=== PATIENT | female | born 1950 | race Caucasian/White ===

== ENCOUNTER 2018-05-20 15:52 | Emergency (ER) | payer MEDICARE ==
[2018-05-20 16:11] VITALS: BP 122/85
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
== END 2018-05-20 17:45 | disposition short-term general hospital (02) ==
LOC: UCEAST 15:52
DX: R55 Syncope and collapse (principal); S06.9X9A Unspecified intracranial injury with loss of consciousness of unspecified duration, initial encounter; W18.30XA Fall on same level, unspecified, initial encounter; Y93.89 Activity, other specified; Y92.512 Supermarket, store or market as the place of occurrence of the external cause; R42 Dizziness and giddiness; R51 Headache; H53.8 Other visual disturbances; R20.2 Paresthesia of skin; T76.31XA Adult psychological abuse, suspected, initial encounter; Y07.01 Husband, perpetrator of maltreatment and neglect; Z87.891 Personal history of nicotine dependence
CPT/HCPCS: 93005; 99213; G0463

== ENCOUNTER 2018-05-20 18:06 | Inpatient (IN) | payer MEDICARE ==
[2018-05-20 20:46] LABS: Hematocrit 31 % (35-47); Mean Corpuscular HGB Conc 33 g/dl (31-36); Mean Corpuscular Hemoglobin 27 pg (27-31); Mean Corpuscular Volume 81 fL (80-97); Red Blood Count 3.77 10^6/ul (4.00-5.40); Red Cell Distribution Width 19 % (10.5-15)
[2018-05-20 21:09] LABS: EGFR Non-African American 75.9 (>60)
[2018-05-20 21:27] LABS: Urine Appearance Cloudy; Urine Blood Negative (Negative); Urine Color Amber; Urine Ketones Negative (Negative); Urine Protein Negative (Negative); Urine Red Blood Cell Trace(0-2/hpf) (Absent); Urine Specific Gravity 1.019 (1.010-1.030); Urine Urobilinogen Positive (Negative); Urine White Blood Cell 1+(6-10/hpf) (Absent)
--- NOTE | 2018-05-20 21:27 | RAD ---
EXAM: CT Head Without Intravenous Contrast EXAM DATE/TIME: 05/20/2018 9:10 PM CLINICAL HISTORY: 68 years old, female; Injury or trauma; Fall; Additional info: MOORE, head injury TECHNIQUE: Axial computed tomography images of the head/brain without intravenous contrast. All CT scans at this facility use at least one of these dose optimization techniques: automated exposure control; mA and/or kV adjustment per patient size (includes targeted exams where dose is matched to clinical indication); or iterative reconstruction. COMPARISON: No relevant prior studies available. FINDINGS: Brain: Decreased attenuation of the supratentorial white matter is likely secondary to chronic microvascular ischemia. Ventricles: Ventricular and subarachnoid spaces are age appropriate. Bones/joints: Normal. No acute fracture. Sinuses: Normal as visualized. No acute sinusitis. Mastoid air cells: Normal as visualized. No mastoid effusion. Soft tissues: Normal. Vasculature: Intracranial vascular calcification. IMPRESSION: No acute intracranial abnormality. To contact [facility] with a general question: [facility] - [phone] For direct physician to physician contact: Physician Hotline - [phone] [facility] ([facility] Facility ID #[id number])
[2018-05-20 21:30] LABS: ABS Basophils 0 10^3/ul (0-0.2); ABS Eosinophils 0 10^3/ul (0-0.6); ABS Lymphocytes 0.6 10^3/ul (1.0-4.8); ABS Monocytes 0.2 10^3/ul (0-0.8); ABS Neutrophils 2.2 10^3/ul (1.5-7.7); ABS Nucleated RBC 0 10^3/ul; Eosinophil % 0.8 % (0-6); Lymphocyte % 19.5 % (25-47); Mean Platelet Volume 7.3 um3 (7.4-10.4); Nucleated Red Blood Cells % 0.1; Platelet Count 85 10^3/ul (150-450)
[2018-05-20] MEDS ORDERED: Sulfamethox/Trimethoprim DS 800/160* TAB PO ONE (22:00)
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
[2018-05-20] MEDS ORDERED: Ibuprofen TAB* 400 MG PO ONE (22:11)
[2018-05-21 00:35] LABS: INR 1.09 (0.77-1.02)
[2018-05-21] MEDS ORDERED: Ondansetron INJ* 2 MG/ML VIAL IV PRN (03:02)
[2018-05-21] MEDS ORDERED: Docusate CAP* 100 MG PO PRN (03:02)
[2018-05-21] MEDS ORDERED: Al Hydrox/Mg Hydrox/Simet LIQ* 30 ML UDC PO PRN (03:02)
[2018-05-21] MEDS ORDERED: Senna TAB PO PRN (03:02)
[2018-05-21] MEDS ORDERED: Magnesium Sulfate 1 GM IV* 1 GM/100 ML BAG IV ONE (03:04)
[2018-05-21] MEDS ORDERED: Potassium Chlor TAB* 20 MEQ TAB.ER PO ONE (03:04)
[2018-05-21] MEDS ORDERED: ALPRAZolam TAB* 0.5 MG PO PRN (03:05)
[2018-05-21] MEDS ORDERED: Polyethylene Glycol 3350* 17 GM PACKET PO PRN (03:09)
[2018-05-21] MEDS ORDERED: traMADol TAB* 50 MG PO PRN (03:10)
[2018-05-21] MEDS ORDERED: traZODone TAB* 100 MG PO PRN (03:10)
--- NOTE | 2018-05-21 08:11 | RAD ---
INDICATION: Syncope COMPARISON: None. TECHNIQUE: Single AP portable view of the chest was obtained. FINDINGS: Image quality is compromised due to the relative inferiority of a portable chest x-ray. There is a mild degree of cardiomegaly. There is coarse atherosclerotic calcification overlying the aortic arch. The lungs are grossly clear. There is no evidence of a large pleural effusion. Visualized bones are normal for the patient's age. IMPRESSION: No radiographic evidence for acute cardiopulmonary abnormality on this portable chest x-ray. R0
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
[2018-05-21] MEDS: BuPROPion XL* 300 MG TAB.XL PO SCH (09:58)
[2018-05-21] MEDS: FLUoxetine CAP* 20 MG PO SCH (09:58)
[2018-05-21] MEDS: Gabapentin CAP(*) 100 MG PO SCH ×3 (09:59→20:20)
[2018-05-21] MEDS: Spironolactone TAB* 25 MG PO SCH (10:00)
[2018-05-21] MEDS: Omeprazole CAP* 20 MG PO SCH ×2 (10:00→20:19)
[2018-05-21] MEDS: Oxybutynin TAB* 5 MG PO SCH (10:00)
[2018-05-21] MEDS: Sucralfate TAB* 1 GM PO SCH ×4 (10:00→20:20)
[2018-05-21] MEDS: Magnesium Oxide TAB* 400 MG PO SCH (10:00)
[2018-05-21] MEDS: Ferrous Sulfate TAB* 325 MG PO SCH (10:00)
[2018-05-21] MEDS ORDERED: Regadenoson* 0.4 MG/5 ML SYRINGE ONE (10:55)
[2018-05-21] MEDS: Acetaminophen TAB* 325 MG PO PRN (13:32)
--- NOTE | 2018-05-21 13:47 | RAD ---
HISTORY: CP COMPARISONS: None TECHNIQUE: A 1 day stress/rest myocardial perfusion study was performed, with pharmacologic stress. The stress portion was monitored by Dr. Delgado. Gated SPECT imaging was performed, without CT-based attenuation correction secondary to patient rotation DOSE: Stress: Technetium 99m tetrofosmin, 25.7 millicuries, injected at 12:01 PM on May 21, 2018 Rest: Technetium 99m tetrofosmin, 10.3 millicuries, injected at 8:09 AM on May 21, 2018 Pharmacologic agent: Lexiscan FINDINGS: CARDIAC MONITORING: No EKG changes of ischemia with stress. EF: 87 % TID: 1.02 MOTION: Normal motion, with normal wall thickening. PERFUSION: There is a small defect of the lateral wall towards the base of the polar maps which is not reflected in the planar images in the sulci artifactual. There are no definite fixed or reversible perfusion defects. OTHER: None IMPRESSION: NO DEFINITE FIXED OR REVERSIBLE PERFUSION DEFECTS ASSESSMENT: LOW RISK. Based on imaging criteria from ACC/AHA 2002. Guideline Update for the Management of Patient's with Chronic Stable Angina, table 23. Noninvasive Risk Stratification.
--- NOTE | 2018-05-21 14:10 | PN ---
Subjective Date of Service: 05/21/18 Interval History: pt c/o dizziness when walking, but able to walk with walker and one person assistance. Denies CP, but has h/o recent CP episodes, denies SOB Objective Active Medications: Acetaminophen (Tylenol Tab*) 650 mg PO Q4H PRN PRN Reason: FEVER/PAIN Last Admin: 05/21/18 13:32 Dose: 650 mg Al Hydrox/Mg Hydrox/Simethicone (Maalox Plus*) 30 ml PO Q6H PRN PRN Reason: INDIGESTION Alprazolam (Xanax Tab*) 0.5 mg PO BID PRN PRN Reason: ANXIETY Bupropion HCl (Bupropion Xl*) 300 mg PO DAILY [facility]; Protocol Last Admin: 05/21/18 09:58 Dose: 300 mg Docusate Sodium (Colace Cap*) 100 mg PO BID PRN PRN Reason: CONSTIPATION Ferrous Sulfate (Ferrous Sulfate Tab*) 325 mg PO DAILY [facility] Last Admin: 05/21/18 10:00 Dose: 325 mg Fluoxetine HCl (Prozac Cap*) 60 mg PO DAILY [facility] Last Admin: 05/21/18 09:58 Dose: 60 mg Gabapentin (Neurontin Cap(*)) 100 mg PO TID [facility] Last Admin: 05/21/18 13:32 Dose: 100 mg Magnesium Oxide (Magox 400 Tab*) 400 mg PO DAILY [facility] Last Admin: 05/21/18 10:00 Dose: 400 mg Omeprazole (Prilosec Cap*) 20 mg PO BID [facility] Last Admin: 05/21/18 10:00 Dose: 20 mg Ondansetron HCl (Zofran Inj*) 4 mg IV Q4H PRN PRN Reason: NAUSEA/VOMITING Oxybutynin Chloride (Ditropan Tab*) 5 mg PO DAILY [facility] Last Admin: 05/21/18 10:00 Dose: 5 mg Polyethylene Glycol/Electrolytes (Miralax*) 17 gm PO DAILY PRN PRN Reason: CONSTIPATION Senna (Senokot Tab*) 1 tab PO BID PRN PRN Reason: CONSTIPATION Spironolactone (Aldactone Tab*) 25 mg PO DAILY [facility] Last Admin: 05/21/18 10:00 Dose: 25 mg Sucralfate (Carafate*) 1 gm PO QID [facility] Last Admin: 10/17/18 13:32 Dose: 1 gm Tramadol HCl (Ultram*) 50 mg PO Q6H PRN PRN Reason: PAIN Trazodone HCl (Desyrel Tab*) 100 mg PO BEDTIME PRN PRN Reason: SLEEP Vital Signs - 8 hr 05/21/18 05/21/18 05/21/18 07:26 08:08 08:10 Temperature 98.0 F Pulse Rate 63 60 63 Respiratory 16 16 16 Rate Blood Pressure 94/41 101/49 118/63 (mmHg) O2 Sat by Pulse 100 100 100 Oximetry 05/21/18 05/21/18 05/21/18 08:15 09:59 10:50 Temperature 98.2 F Pulse Rate 62 65 Respiratory 18 20 Rate Blood Pressure 121/60 117/54 (mmHg) O2 Sat by Pulse 100 Oximetry 05/21/18 05/21/18 12:08 13:32 Temperature Pulse Rate Respiratory 16 18 Rate Blood Pressure (mmHg) O2 Sat by Pulse Oximetry Oxygen Devices in Use Now: None Appearance: 68 yo F in nAD, AAOx3, appears older that age Eyes: No Scleral Icterus, PERRLA Ears/Nose/Mouth/Throat: NL Teeth, Lips, Gums, Clear Oropharnyx, Mucous Membranes Moist Neck: NL Appearance and Movements; NL JVP Respiratory: Symmetrical Chest Expansion and Respiratory Effort, Clear to Auscultation Cardiovascular: NL Sounds; No Murmurs; No JVD, RRR Abdominal: NL Sounds; No Tenderness; No Distention, No Hepatosplenomegaly Lymphatic: No Cervical Adenopathy Extremities: No Edema, No Clubbing, Cyanosis Skin: - - left occipital laceration and abrasion-smal, wound covered with eschar Neurological: Alert and Oriented x 3, NL Muscle Strength and Tone Result Diagrams: 05/20/18 20:28 05/20/18 20:28 Additional Lab and Data: Lab Results 05/20/18 05/20/18 05/20/18 Range/Units 20:28 20:28 21:00 WBC 3.0 L (3.5-10.8) 10^3/ul RBC 3.77 L (4.00-5.40) 10^6/ul Hgb 10.0 L (12.0-16.0) g/dl Hct 31 L (35-47) % MCV 81 (80-97) fL MCH 27 (27-31) pg MCHC 33 (31-36) g/dl RDW 19 H (10.5-15) % Plt Count 85 L (150-450) 10^3/ul MPV 7.3 L (7.4-10.4) um3 Neut % (Auto) 73.5 (38-83) % Lymph % (Auto) 19.5 L (25-47) % [place] % (Auto) 5.4 (0-7) % Eos % (Auto) 0.8 (0-6) % Baso % (Auto) 0.8 (0-2) % Absolute Neuts (auto) 2.2 (1.5-7.7) 10^3/ul Absolute Lymphs (auto) 0.6 L (1.0-4.8) 10^3/ul Absolute Monos (auto) 0.2 (0-0.8) 10^3/ul Absolute Eos (auto) 0 (0-0.6) 10^3/ul Absolute Basos (auto) 0 (0-0.2) 10^3/ul Absolute Nucleated RBC 0 10^3/ul Nucleated RBC % 0.1 Sodium 139 (135-145) mmol/L Potassium 3.3 L (3.5-5.0) mmol/L Chloride 108 (101-111) mmol/L Carbon Dioxide 25 (22-32) mmol/L Anion Gap 6 (2-11) mmol/L BUN 17 (6-24) mg/dL Creatinine 0.76 (0.51-0.95) mg/dL Est GFR ( Amer) 91.8 (>60) Est GFR (Non-Af Amer) 75.9 (>60) BUN/Creatinine Ratio 22.4 H (8-20) Glucose 80 (70-100) mg/dL Calcium 8.5 L (8.6-10.3) mg/dL Total Bilirubin 0.60 (0.2-1.0) mg/dL AST 38 (13-39) U/L ALT 30 (7-52) U/L Alkaline Phosphatase 120 H (34-104) U/L C-Reactive Protein 12.40 H (<8.01) mg/L Total Protein 5.5 L (6.4-8.9) g/dL Albumin 3.1 L (3.2-5.2) g/dL Globulin 2.4 (2-4) g/dL Albumin/Globulin Ratio 1.3 (1-3) Urine Color Aimee Urine Appearance Cloudy Urine pH 5.0 (5-9) Ur Specific [place] 1.019 (1.010-1.030) Urine Protein Negative (Negative) Urine Ketones Negative (Negative) Urine Blood Negative (Negative) Urine Nitrate Positive A (Negative) Urine Bilirubin Negative (Negative) Urine Urobilinogen Positive A (Negative) Ur Leukocyte Esterase Trace A (Negative) Urine WBC (Auto) 1+(6-10/hpf) A (Absent) Urine RBC (Auto) Trace(0-2/hpf) (Absent) Urine Bacteria 1+ A (Absent) Hyaline Casts Present A (Absent) Urine Glucose Negative (Negative) Urine Ascorbic Acid * A (Negative) Assess/Plan/Problems-Billing Assessment: 68 yo F with h/o lover cirrhosis, anxiety presented c/o dizziness after a fall/syncope on 05/19/18 - Patient Problems (1) Syncope Comment: cont telem possible orthostatic hypotension rellated or simply a fall due to decreased endurance in pt who is walker dependent cont PT/OT (2) Dizziness Comment: post fall/concussion? Not orthostatic, no evidence of ataxia CT brain neg (3) Liver cirrhosis Comment: cont Aldactone, holding Lasix. Checking Ammonia (4) Pancytopenia Comment: chronic , related to liver cirrhosis (5) Chest pain Comment: cardiac stress test today with low probability (6) Muscular deconditioning Comment: PT/OT recommend STR (7) Anemia Comment: normocytic, chronic due to unsteadiness will check Vit B12 level Status and Disposition: OBV changed to inpatient
--- NOTE | 2018-05-21 18:46 | ECHO ---
Patient: LORENA BRYANT [facility] Rec#: [id number] : 1950 Date: 05/21/2018 Age: 68y Height: 160 cm / 63.0 in Weight: 47 kg / 103.6 lbs Sex: F BSA: 1.46 Room#: 2 Admit Date#: 05/21/2018 Type: Inpatient Referring: Kari Durant Reading: Shea Zamorano MD New Order Clerk: Valerie Mann,RDCS,RDMS CC: Marcella Purcell MD Transthoracic Echocardiogram Indication: Syncope BP: 118/58 HR: 70 Rhythm: NSR Findings History: CP, syncope, ETOH Technical Comments: The study quality is good. Left Ventricle: The left ventricular chamber size is normal. Mild concentric left ventricular hypertrophy is observed. There is a prominent septal knuckle. Global left ventricular wall motion and contractility are within normal limits. The estimated ejection fraction is 55-60%. There is no consistent Doppler evidence of clinically significant diastolic dysfunction. Left Atrium: The left atrium is moderate to severely dilated. Right Ventricle: The right ventricular chamber size and systolic function are within normal limits. Right Atrium: The right atrial cavity size is normal. Aortic Valve: The aortic valve is trileaflet. Systolic excursion of the aortic valve is normal. There is aortic annular calcification. There is no evidence of aortic regurgitation. There is no evidence of aortic stenosis. Mitral Valve: The mitral valve leaflets are mildly thickened. There is mild to moderate mitral regurgitation. evidence of diastolic MR. There is no evidence of mitral stenosis. Tricuspid Valve: The tricuspid valve leaflets are normal. There is no evidence of tricuspid valve regurgitation. Unable to estimate the right ventricular systolic pressure. Pulmonic Valve: The pulmonic valve appears normal. There is a trace pulmonic regurgitation. Pericardium: There is no significant pericardial effusion. Aorta: The aortic root appears normal. There is no dilatation of the aortic arch. Pulmonary Artery: The main pulmonary artery appears normal. Venous: The inferior vena cava appears normal in size. There is a greater than 50% respiratory change in the inferior vena cava dimension. Conclusions Mild concentric left ventricular hypertrophy is observed. There is a prominent septal knuckle, no evidence of LVOT obstruction at rest. Global left ventricular wall motion and contractility are within normal limits. The estimated ejection fraction is 60%. The right ventricular chamber size and systolic function are within normal limits. There is mild to moderate mitral regurgitation. with diastolic MR. No prior echo to compare. Measurements Name Value Normal Range RVIDd (AP) 2D 1.8 cm (0.9 - 2.6) RVDdMajor (2D) 3.3 cm (2.2 - 4.4) RAd ISD 4CH 4.7 cm (3.4 - 4.9) RA (A4C)W 3 cm (2.9 - 4.6) IVSd (2D) 1.2 cm (0.6 - 1) LVPWd (2D) 0.8 cm (0.6 - 1) LVIDd (2D) 4.1 cm (3.6 - 5.4) LVIDs (2D) 2.7 cm - LV FS (2D) 34 % (25 - 45) Aortic Annulus 2.1 cm (1.4 - 2.6) Ao root diameter (2D) 3.2 cm (2.1 - 3.5) Ascending Ao 2.8 cm (2.1 - 3.4) Aortic arch 3.2 cm (1.8 - 3.4) LA dimension (AP) 2D 3.8 cm (2.3 - 3.8) LAd ISD 4CH 5.9 cm (2.9 - 5.3) LA ISD 4CH W 5.1 cm (2.5 - 4.5) Name Value Normal Range LA ESV BP (A/L) index 60 ml/m2 - Name Value Normal Range MV E-wave Vmax 1 m/sec - MV deceleration time 264 msec - MV A-wave Vmax 0.8 m/sec - MV E:A ratio 1.3 ratio - LV septal e' Vmax 0.07 m/sec - LV lateral e' Vmax 0.09 m/sec - LV E:e' septal ratio 15 ratio - LV E:e' lateral ratio 11 ratio - Name Value Normal Range AV Vmax 1 m/sec - AV VTI 18 cm - AV peak gradient 4 mmHg - AV mean gradient 2 mmHg - LVOT diameter 2 cm - LVOT Vmax 1 m/sec - LVOT VTI 19 cm - LVOT peak gradient 4 mmHg - LVOT mean gradient 2 mmHg - JASON Vmax 0.7 m/sec - Name Value Normal Range MV Vmax 1.3 m/sec - MV VTI 34 cm - MV peak gradient 7 mmHg - MV mean gradient 2 mmHg - MV PHT 99 msec - MR Vmax 5.1 m/sec - MR VTI 169 cm - MR volume (PISA) 56 ml - MR flow (PISA) 168 ml/sec - MR ERO 0.33 cm2 - MR PISA radius 0.9 cm - MR alias Vmax 33 cm/sec - MVA (PHT) 2.2 cm2 - MVA (continuity VTI) 1.8 cm2 - Name Value Normal Range RAP 8 mmHg - IVC diameter 1.3 cm - Name Value Normal Range PV Vmax 1.1 m/sec - PV peak gradient 5 mmHg -
[2018-05-22 06:02] LABS: ABS Basophils 0 10^3/ul (0-0.2); ABS Eosinophils 0 10^3/ul (0-0.6); ABS Lymphocytes 0.6 10^3/ul (1.0-4.8); ABS Monocytes 0.2 10^3/ul (0-0.8); ABS Neutrophils 1.6 10^3/ul (1.5-7.7); ABS Nucleated RBC 0 10^3/ul; Eosinophil % 0.8 % (0-6); Hematocrit 31 % (35-47); Hemoglobin 10.2 g/dl (12.0-16.0); Lymphocyte % 25.4 % (25-47); Mean Corpuscular HGB Conc 33 g/dl (31-36); Mean Corpuscular Hemoglobin 27 pg (27-31); Mean Corpuscular Volume 81 fL (80-97); Mean Platelet Volume 7.2 um3 (7.4-10.4); Nucleated Red Blood Cells % 0.2; Platelet Count 80 10^3/ul (150-450); Red Blood Count 3.83 10^6/ul (4.00-5.40); Red Cell Distribution Width 19 % (10.5-15); White Blood Count 2.5 10^3/ul (3.5-10.8)
[2018-05-22 06:20] LABS: EGFR Non-African American 65.8 (>60)
[2018-05-22] MEDS: Omeprazole CAP* 20 MG PO SCH ×2 (08:40→21:40)
[2018-05-22] MEDS: FLUoxetine CAP* 20 MG PO SCH (08:41)
[2018-05-22] MEDS: Acetaminophen TAB* 325 MG PO PRN (08:44)
[2018-05-22] MEDS: Sucralfate TAB* 1 GM PO SCH ×4 (08:45→21:40)
[2018-05-22] MEDS: Ferrous Sulfate TAB* 325 MG PO SCH (08:45)
[2018-05-22] MEDS: BuPROPion XL* 300 MG TAB.XL PO SCH (08:46)
[2018-05-22] MEDS: Oxybutynin TAB* 5 MG PO SCH (08:46)
[2018-05-22] MEDS: Spironolactone TAB* 25 MG PO SCH (08:47)
[2018-05-22] MEDS: Gabapentin CAP(*) 100 MG PO SCH ×3 (08:47→21:40)
[2018-05-22] MEDS: Magnesium Oxide TAB* 400 MG PO SCH (08:47)
--- NOTE | 2018-05-22 12:14 | PN ---
Subjective Date of Service: 05/22/18 Interval History: Pt feels well. Apparently was discharged from [facility] 3 weeks ago and want to go back there Objective Active Medications: Acetaminophen (Tylenol Tab*) 650 mg PO Q4H PRN PRN Reason: FEVER/PAIN Last Admin: 05/22/18 08:44 Dose: 650 mg Al Hydrox/Mg Hydrox/Simethicone (Maalox Plus*) 30 ml PO Q6H PRN PRN Reason: INDIGESTION Alprazolam (Xanax Tab*) 0.5 mg PO BID PRN PRN Reason: ANXIETY Bupropion HCl (Bupropion Xl*) 300 mg PO DAILY [facility]; Protocol Last Admin: 05/22/18 08:46 Dose: 300 mg Docusate Sodium (Colace Cap*) 100 mg PO BID PRN PRN Reason: CONSTIPATION Ferrous Sulfate (Ferrous Sulfate Tab*) 325 mg PO DAILY [facility] Last Admin: 05/22/18 08:45 Dose: 325 mg Fluoxetine HCl (Prozac Cap*) 60 mg PO DAILY [facility] Last Admin: 05/22/18 08:41 Dose: 60 mg Gabapentin (Neurontin Cap(*)) 100 mg PO TID [facility] Last Admin: 05/22/18 08:47 Dose: 100 mg Magnesium Oxide (Magox 400 Tab*) 400 mg PO DAILY [facility] Last Admin: 05/22/18 08:47 Dose: 400 mg Omeprazole (Prilosec Cap*) 20 mg PO BID [facility] Last Admin: 05/22/18 08:40 Dose: 20 mg Ondansetron HCl (Zofran Inj*) 4 mg IV Q4H PRN PRN Reason: NAUSEA/VOMITING Oxybutynin Chloride (Ditropan Tab*) 5 mg PO DAILY [facility] Last Admin: 05/22/18 08:46 Dose: 5 mg Polyethylene Glycol/Electrolytes (Miralax*) 17 gm PO DAILY PRN PRN Reason: CONSTIPATION Senna (Senokot Tab*) 1 tab PO BID PRN PRN Reason: CONSTIPATION Spironolactone (Aldactone Tab*) 25 mg PO DAILY [facility] Last Admin: 05/22/18 08:47 Dose: 25 mg Sucralfate (Carafate*) 1 gm PO QID [facility] Last Admin: 05/22/18 08:45 Dose: 1 gm Tramadol HCl (Ultram*) 50 mg PO Q6H PRN PRN Reason: PAIN Last Admin: 05/21/18 20:20 Dose: 50 mg Trazodone HCl (Desyrel Tab*) 100 mg PO BEDTIME PRN PRN Reason: SLEEP Vital Signs - 8 hr 05/22/18 05/22/18 05/22/18 07:49 07:56 08:47 Temperature 97.9 F Pulse Rate 66 Respiratory 16 20 16 Rate Blood Pressure 113/52 (mmHg) O2 Sat by Pulse 100 Oximetry 05/22/18 05/22/18 10:47 11:17 Temperature 98.2 F Pulse Rate 74 Respiratory 14 16 Rate Blood Pressure 110/65 (mmHg) O2 Sat by Pulse 100 Oximetry Oxygen Devices in Use Now: None Appearance: 68 yo F in nAD, AAOx3, appears older than stated age Eyes: No Scleral Icterus, PERRLA Ears/Nose/Mouth/Throat: NL Teeth, Lips, Gums, Mucous Membranes Moist Neck: NL Appearance and Movements; NL JVP, Trachea Midline Respiratory: Symmetrical Chest Expansion and Respiratory Effort, Clear to Auscultation Cardiovascular: NL Sounds; No Murmurs; No JVD Abdominal: NL Sounds; No Tenderness; No Distention Lymphatic: No Cervical Adenopathy Extremities: No Edema, No Clubbing, Cyanosis Skin: No Rash or Ulcers, No Nodules or Sclerosis Neurological: Alert and Oriented x 3, NL Muscle Strength and Tone Result Diagrams: 05/22/18 05:44 05/22/18 05:44 Additional Lab and Data: Lab Results 05/20/18 05/20/18 05/20/18 Range/Units 20:28 20:28 21:00 WBC 3.0 L (3.5-10.8) 10^3/ul RBC 3.77 L (4.00-5.40) 10^6/ul Hgb 10.0 L (12.0-16.0) g/dl Hct 31 L (35-47) % MCV 81 (80-97) fL MCH 27 (27-31) pg MCHC 33 (31-36) g/dl RDW 19 H (10.5-15) % Plt Count 85 L (150-450) 10^3/ul MPV 7.3 L (7.4-10.4) um3 Neut % (Auto) 73.5 (38-83) % Lymph % (Auto) 19.5 L (25-47) % [place] % (Auto) 5.4 (0-7) % Eos % (Auto) 0.8 (0-6) % Baso % (Auto) 0.8 (0-2) % Absolute Neuts (auto) 2.2 (1.5-7.7) 10^3/ul Absolute Lymphs (auto) 0.6 L (1.0-4.8) 10^3/ul Absolute Monos (auto) 0.2 (0-0.8) 10^3/ul Absolute Eos (auto) 0 (0-0.6) 10^3/ul Absolute Basos (auto) 0 (0-0.2) 10^3/ul Absolute Nucleated RBC 0 10^3/ul Nucleated RBC % 0.1 Sodium 139 (135-145) mmol/L Potassium 3.3 L (3.5-5.0) mmol/L Chloride 108 (101-111) mmol/L Carbon Dioxide 25 (22-32) mmol/L Anion Gap 6 (2-11) mmol/L BUN 17 (6-24) mg/dL Creatinine 0.76 (0.51-0.95) mg/dL Est GFR ( Amer) 91.8 (>60) Est GFR (Non-Af Amer) 75.9 (>60) BUN/Creatinine Ratio 22.4 H (8-20) Glucose 80 (70-100) mg/dL Calcium 8.5 L (8.6-10.3) mg/dL Total Bilirubin 0.60 (0.2-1.0) mg/dL AST 38 (13-39) U/L ALT 30 (7-52) U/L Alkaline Phosphatase 120 H (34-104) U/L C-Reactive Protein 12.40 H (<8.01) mg/L Total Protein 5.5 L (6.4-8.9) g/dL Albumin 3.1 L (3.2-5.2) g/dL Globulin 2.4 (2-4) g/dL Albumin/Globulin Ratio 1.3 (1-3) Urine Color Aimee Urine Appearance Cloudy Urine pH 5.0 (5-9) Ur Specific [place] 1.019 (1.010-1.030) Urine Protein Negative (Negative) Urine Ketones Negative (Negative) Urine Blood Negative (Negative) Urine Nitrate Positive A (Negative) Urine Bilirubin Negative (Negative) Urine Urobilinogen Positive A (Negative) Ur Leukocyte Esterase Trace A (Negative) Urine WBC (Auto) 1+(6-10/hpf) A (Absent) Urine RBC (Auto) Trace(0-2/hpf) (Absent) Urine Bacteria 1+ A (Absent) Hyaline Casts Present A (Absent) Urine Glucose Negative (Negative) Urine Ascorbic Acid * A (Negative) Microbiology and Other Data: Microbiology 05/20/18 21:00 Urine Culture - Preliminary Urine Escherichia Coli Assess/Plan/Problems-Billing Assessment: 68 yo F with h/o lover cirrhosis, anxiety presented c/o dizziness after a fall/syncope on 05/19/18 - Patient Problems (1) Syncope Comment: possible orthostatic hypotension rellated or simply a fall due to decreased endurance in pt who is walker dependent cont PT/OT Awaiting STR Dc/ telem (2) Dizziness Comment: post fall/concussion? Not orthostatic, no evidence of ataxia CT brain neg (3) Liver cirrhosis Comment: cont Aldactone, holding Lasix. Ammonia WNL (4) Pancytopenia Comment: chronic , related to liver cirrhosis (5) Chest pain Comment: cardiac stress test with low probability (6) Muscular deconditioning Comment: PT/OT recommend STR (7) Anemia Comment: normocytic, chronic (8) DVT prophylaxis Comment: SCD's, no anticoagulants due to thrombocytopenia (9) UTI (urinary tract infection) Comment: no specific symptoms, but was weak and fell. U cx >100 000 E coli will start Ceftriaxone Status and Disposition: OBV changed to inpatient
[2018-05-22] MEDS ORDERED: cefTRIAXone(*) 1 GM in NS 0.9% 50 ML* 50 ML IVPB SCH (13:00)
[2018-05-23] MEDS: Gabapentin CAP(*) 100 MG PO SCH (10:21)
[2018-05-23] MEDS: Spironolactone TAB* 25 MG PO SCH (10:22)
[2018-05-23] MEDS: Ferrous Sulfate TAB* 325 MG PO SCH (10:22)
[2018-05-23] MEDS: Oxybutynin TAB* 5 MG PO SCH (10:22)
[2018-05-23] MEDS: BuPROPion XL* 300 MG TAB.XL PO SCH (10:23)
[2018-05-23] MEDS: Omeprazole CAP* 20 MG PO SCH (10:23)
[2018-05-23] MEDS: Magnesium Oxide TAB* 400 MG PO SCH (10:25)
[2018-05-23] MEDS: FLUoxetine CAP* 20 MG PO SCH (10:25)
[2018-05-23] MEDS: Sucralfate TAB* 1 GM PO SCH (10:26)
--- NOTE | 2018-05-23 11:39 | DS ---
CC: Dr. Purcell; [facility] * DISCHARGE SUMMARY: DATE OF ADMISSION: 05/21/18 DATE OF DISCHARGE: 05/23/18 PRIMARY CARE PROVIDER: Dr. Purcell. DISCHARGE DIAGNOSES: 1. Fall and syncope likely due to physical deconditioning and possible orthostasis. 2. Postconcussion syndrome and dizziness. 3. Urinary tract infection. SECONDARY DIAGNOSES: 1. 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 2. Gastroesophageal reflux disease. 3. Depression and anxiety. 4. Bladder dysfunction. MEDICATIONS: At discharge include: 1. Cefdinir 300 mg p.o. b.i.d. for a total of 3 days and stop. 2. Ferrous sulfate 325 mg daily. 3. Neurontin 100 mg 3 times a day. 4. Zofran on a p.r.n. basis. 5. Protonix 40 mg daily. 6. Carafate 0.5 g 4 times a day. 7. Ultram 50 mg every 4 hours p.r.n. 8. Trazodone 100 mg at bedtime. 9. Bupropion XL 300 mg a day. 10. Colace 100 mg b.i.d. 11. Prozac 60 mg daily. 12. Mag ox 400 mg daily. 13. Ditropan 5 mg daily. 14. MiraLAX 17 g daily p.r.n. 15. Senna 1 tablet b.i.d. p.r.n. 16. Aldactone 25 mg daily. LABORATORY DATA AND STUDIES PERFORMED DURING THE HOSPITAL STAY: Included: 0n , white blood cell count of 2.5, hemoglobin of 10.2, hematocrit of 31, and platelets of 80,000. Sodium of 139, potassium of 4.1, chloride 111, carbon dioxide 24, BUN 16, creatinine 0.86. The patient's vitamin B12 level was 665. TSH was 1.79 at admission. Cholesterol profile showed triglycerides of 127, total cholesterol of 145, LDL of 85, HDL of 34. Microbiology studies were positive for over 100,000 colonies of E. Coli in the urine. Pharmacologic cardiac stress test reported on 05/21/18 shows no definite fixed or reversible perfusion defects and was assessed as low risk. The patient's transthoracic echocardiogram obtained on 05/21/18 showed marked concentric LVH with permanent septal knuckle, but no evidence of LVOT obstruction. EF of 60%. Mild diastolic mitral regurgitation. HOSPITALIZATION COURSE: Italia Perez is a 68-year-old female who was at [facility] approximately a month ago, who presented to the hospital after a fall that occurred 24 hours prior. The patient was at a [employer] store when she fell, had possible syncope but she is not sure. She hit her head and suffered from a small laceration to her scalp. For the next day, she complained of dizziness and problems with ambulation. She came into the ED in 24 hours for evaluation. Here, she was noted to have likely UTI and problems with ambulation. Due to a question of syncope the day prior to current admission, she was placed on overnight observation. She had a cardiac stress test due to reports of chest pain in the past, which was low probability. Her transthoracic echocardiogram showed a mild MR, but no other abnormalities were noted and was as reported above. The troponins were negative throughout her hospital stay. The patient was noted to have known pancytopenia likely due to her history of liver cirrhosis and consistent with prior reports. The patient underwent physical therapy evaluation and was deemed to be a good candidate for short rehabilitation, to which she is going to be discharged today. She is going to [facility] for rehabilitation. PHYSICAL EXAMINATION AT THE TIME OF DISCHARGE: Blood pressure of 127/46, heart rate of 73 and regular, respiratory rate 18, oxygen saturation 100% on room air , temperature 98.1. General: The patient is a very pleasant 68-year-old female , who is in no acute distress. Alert, awake, and oriented x3. HEENT: Head with a small laceration noted in the left occipital area with no evidence of infection covered with eschar. Eyes: Extraocular muscles are intact. Pupils are equal, reactive to light and accommodation. Oropharynx clear. Mucosa moist. Neck: Supple. No JVD, no bruits bilaterally. Cardiovascular: Regular rate and rhythm with soft systolic murmur on auscultation of the apex. Respiratory: Clear to auscultation bilaterally. Abdomen: Soft, nontender. Bowel sounds are present in all 4 quadrants. Extremities: There is no edema. Pulses +2 bilaterally. No clubbing or cyanosis. Neuro Evaluation: The patient has a baseline unsteady gait. Cranial nerves II through XII grossly intact. Motor strength is 5/5 bilaterally. Please note that from the patient's medications at admission, her Lasix was discontinued. The remaining medications including Aldactone had been continued. Please note that this is a short summary of the patient's hospitalization. Please refer to further medical records for details. TIME SPENT: Approximately 45 minutes were spent on the patient's discharge. [id number]/[facility] #: [id number] MTDD
[2018-05-23 12:17] VITALS: BP 122/54
== END 2018-05-23 12:00 | DRG 312 ==
LOC: ED 18:06 → MEDTELE 05-21 03:02 → OBSVTOIN 05-21 13:56 → MED 05-22 20:58
PROVIDERS: ADMIT Pediatrics; ATTEND Internal Medicine
PROC: 4A12XM4 Monitoring of Cardiac Stress, External Approach (ICD-10-PCS; principal; 2018-05-21)
DX: I95.1 Orthostatic hypotension (principal); D61.818 Other pancytopenia; N39.0 Urinary tract infection, site not specified; R64 Cachexia; Z68.1 Body mass index [BMI] 19.9 or less, adult; M19.90 Unspecified osteoarthritis, unspecified site; M40.209 Unspecified kyphosis, site unspecified; R40.2142 Coma scale, eyes open, spontaneous, at arrival to emergency department; R40.2362 Coma scale, best motor response, obeys commands, at arrival to emergency department; R40.2252 Coma scale, best verbal response, oriented, at arrival to emergency department; K70.30 Alcoholic cirrhosis of liver without ascites; K21.9 Gastro-esophageal reflux disease without esophagitis; F32.9 Major depressive disorder, single episode, unspecified; F41.9 Anxiety disorder, unspecified; R58 Hemorrhage, not elsewhere classified; W18.30XA Fall on same level, unspecified, initial encounter; Z66 Do not resuscitate; D69.6 Thrombocytopenia, unspecified; D64.9 Anemia, unspecified; R07.9 Chest pain, unspecified; B96.20 Unspecified Escherichia coli [E. coli] as the cause of diseases classified elsewhere; F07.81 Postconcussional syndrome; N31.9 Neuromuscular dysfunction of bladder, unspecified; I34.0 Nonrheumatic mitral (valve) insufficiency; S01.01XA Laceration without foreign body of scalp, initial encounter; Z83.3 Family history of diabetes mellitus; Z82.49 Family history of ischemic heart disease and other diseases of the circulatory system; Y92.9 Unspecified place or not applicable; Z87.891 Personal history of nicotine dependence; Z90.49 Acquired absence of other specified parts of digestive tract; Z98.84 Bariatric surgery status
CPT/HCPCS: 36415; 70450; 71045; 78452; 80048; 80053; 80061; 80307; 80320; 81003; 81015; 82140; 82607; 83735; 84134; 84443; 84484; 85025; 85610; 86140; 87077; 87086; 87186; 93005; 93017; 93306; 99213; 99284; A9270-GY; A9502; G0463; G0480; G8978-GP-CJ; G8979-GP-CI; G8987-GO-CK; G8988-GO-CJ; J0696; J2785; J3475

== ENCOUNTER 2018-05-30 05:40 | Inpatient (IN) | payer MEDICARE ==
[2018-05-30] MEDS ORDERED: NS 0.9% 1000 ML* 1,000 ML IV ONE (05:58)
--- NOTE | 2018-05-30 06:03 | ED ---
Complex/Multi-Sys Presentation - HPI Summary HPI Summary: Patient is a 68-year-old female who presents emergency Department from [facility] for evaluation after a fall. Incident happened just prior to arrival. Patient states she was using the toilet when she felt dizzy and fell to the floor. Pt. does not recall falling and believes she syncopized. Patient hit the left side of her head and is complaining of left hip pain. She denies chest pain or difficulty breathing. Denies recent illness or abdominal pain. Patient typically ambulates without assistance. Movement makes symptoms worse. Rest makes symptoms better. Symptoms are moderate in severity. On chart review it is noted that pt. has been here for similar complaints twice this week. Past medical hx of GERD, HTN, MH. - History Of Current Complaint Chief Complaint: EDHeadInjury Time Seen by Provider: 05/30/18 05:47 Hx Obtained From: Patient, EMS - Allergies/Home Medications Allergies/Adverse Reactions: Allergies Allergy/AdvReac Type Severity Reaction Status Date / Time No Known Allergies Allergy Verified 05/30/18 05:48 PMH/Surg Hx/FS Hx/Imm Hx Previously Healthy: Yes Endocrine/Hematology History: Denies: Hx Anticoagulant Therapy, Hx Blood Disorders, Hx Diabetes, Hx Unexplained Bleeding Cardiovascular History: Reports: Hx Angina Denies: Hx Aneurysm, Hx Hypertension, Hx Myocardial Infarction Respiratory History: Denies: Hx Asthma, Hx Chronic Obstructive Pulmonary Disease (COPD) Musculoskeletal History: 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 Sensory History: Reports: Hx Contacts or Glasses - readers Denies: Hx Hearing Aid Opthamlomology History: Reports: Hx Contacts or Glasses - readers - Surgical History Surgery Procedure, Year, and Place: CHOLECYSTECTOMY, HERNIA REPAIR, GASTRIC BYPASS Infectious Disease History: No Infectious Disease History: Denies: Traveled Outside the [place] in Last 30 Days - Social History Occupation: Retired Lives: At [employer] Alcohol Use: None Hx Substance Use: No Substance Use Type: Reports: None Hx Tobacco Use: Yes - not currently but admits to 2nd hand smoke Smoking Status (MU): Former Smoker Review of Systems Constitutional: Negative Eyes: Negative ENT: Negative Cardiovascular: Negative Negative: Palpitations, Chest Pain Respiratory: Negative Negative: Shortness Of Breath Gastrointestinal: Negative Negative: Abdominal Pain, Vomiting, Diarrhea Genitourinary: Negative Positive: Other - Left hip pain Positive: Other - abrasion to scalp Positive: Headache, Syncope. Negative: Weakness, Paresthesia, Numbness All Other Systems Reviewed And Are Negative: Yes Physical Exam Triage Information Reviewed: Yes Vital Signs On Initial Exam: Initial Vitals Temp Pulse Resp BP Pulse Ox 98.1 F 64 16 100/50 99 05/30/18 05:43 05/30/18 05:43 05/30/18 05:43 05/30/18 05:43 05/30/18 05:43 Vital Signs Reviewed: Yes Appearance: Positive: Thin - Pt. lying in bed in NAD. Appears older than stated age. Skin: Positive: Warm, Dry Head/Face: Positive: Other - Superficial abrasion noted to left scalp. Eyes: Positive: Normal, EOMI, WINIFRED, Conjunctiva Clear Neck: Positive: Supple Respiratory/Lung Sounds: Positive: Clear to Auscultation, Breath Sounds Present Cardiovascular: Positive: Normal, RRR Abdomen Description: Positive: Nontender, Soft Musculoskeletal: Positive: Other - Pain to palpation of left hip. No obvious deformity. Extremities are all neurovascularly intact. Neurological: Positive: Normal, CN Intact II-III Psychiatric: Positive: Affect/Mood Appropriate - [place] Coma Scale Best Eye Response: 4 - Spontaneous Best Motor Response: 6 - Obeys Commands Best Verbal Response: 4 - Confused Coma Scale Total: 14 Diagnostics - Vital Signs Vital Signs Temp Pulse Resp BP Pulse Ox 05/30/18 05:43 98.1 F 64 16 100/50 99 - Laboratory Result Diagrams: 05/30/18 06:18 05/30/18 06:18 Lab Statement: Any lab studies that have been ordered have been reviewed, and results considered in the medical decision making process. Complex Multi-Symp Course/Dx Course Of Treatment: Pt. presenting for headache and hip pain after potential syncopal episode. She is afebrile with stable vital signs. Patient started on IV fluids. Workup ordered. EKG done at 0615 shows sinus rhythm of 61 bpm, no STEMI. Blood work is relatively unremarkable. CT scan of the brain is negative for acute findings. CT scan of the cervical spine is negative for cervical injuries, they do note a old versus new right clavicular fracture. Patient was reexamined and states she broke her right clavicle and the past and currently has no pain. Hip x-ray shows questionable pelvic fractures. We'll obtain CT scan for further evaluation. CT scan of hip shows nondisplaced fracture at the base the left femoral neck extending into the greater trochanteric and chronic Hx of the posterior aspect of the left inferior pubic ramus. Imaging was read per radiology. I spoke with ortho. Darell, Who will consult on patient for potential surgery. I spoke with hospitalist, Dr. Howard, who accepts admission. Results were discussed with patient. She was given Tylenol morphine in the ER for pain. - Diagnoses Provider Diagnoses: Hip fracture, Syncope Discharge - Sign-Out/Discharge Documenting (check all that apply): Patient Departure - Discharge Plan Condition: Stable Disposition: ADMITTED TO [facility] - Billing Disposition and Condition Condition: STABLE Disposition: Admitted to [facility]
[2018-05-30 06:29] LABS: Hematocrit 31 % (35-47); Hemoglobin 10.4 g/dl (12.0-16.0); Mean Corpuscular HGB Conc 34 g/dl (31-36); Mean Corpuscular Hemoglobin 28 pg (27-31); Mean Corpuscular Volume 82 fL (80-97); Mean Platelet Volume 7.7 um3 (7.4-10.4); Platelet Count 92 10^3/ul (150-450); Red Blood Count 3.78 10^6/ul (4.00-5.40); Red Cell Distribution Width 19 % (10.5-15)
[2018-05-30 07:04] LABS: ABS Basophils 0 10^3/ul (0-0.2); ABS Eosinophils 0 10^3/ul (0-0.6); ABS Lymphocytes 0.6 10^3/ul (1.0-4.8); ABS Monocytes 0.2 10^3/ul (0-0.8); ABS Neutrophils 3.2 10^3/ul (1.5-7.7); ABS Nucleated RBC 0 10^3/ul; Eosinophil % 0.8 % (0-6); Lymphocyte % 14.9 % (25-47); Nucleated Red Blood Cells % 0
--- NOTE | 2018-05-30 07:04 | RAD ---
EXAM: CT Head Without Intravenous Contrast EXAM DATE/TIME: 05/30/2018 6:38 AM CLINICAL HISTORY: 68 years old, female; Injury or trauma; Fall TECHNIQUE: Axial computed tomography images of the head/brain without intravenous contrast. All CT scans at this facility use at least one of these dose optimization techniques: automated exposure control; mA and/or kV adjustment per patient size (includes targeted exams where dose is matched to clinical indication); or iterative reconstruction. COMPARISON: BRAIN WO CT BRAIN WO 05/20/2018 9:11 PM FINDINGS: Brain: No evidence of acute intracranial hemorrhage. No intracranial mass or mass effect. Diffuse cerebral cortical volume loss. Patchy areas of diminished density in the subcortical and periventricular white matter consistent with microvascular leukoencephalopathy. Ventricles: Ventriculomegaly which is commensurate with the degree of cerebral cortical volume loss. Bones/joints: Normal. No acute fracture. Sinuses: Normal as visualized. No acute sinusitis. Mastoid air cells: Normal as visualized. No mastoid effusion. Soft tissues: Normal. IMPRESSION: No evidence of acute intracranial hemorrhage. No intracranial mass or obstructive hydrocephalus. To contact [facility] with a general question: [facility] - [phone] For direct physician to physician contact: Physician Hotline - [phone] [facility] ([facility] Facility ID #[id number])
--- NOTE | 2018-05-30 07:12 | RAD ---
EXAM: CT Cervical Spine Without Intravenous Contrast EXAM DATE/TIME: 05/30/2018 6:46 AM CLINICAL HISTORY: 68 years old, female; Injury or trauma; Fall; Initial encounter; Abrasion TECHNIQUE: Axial computed tomography images of the cervical spine without intravenous contrast. All CT scans at this facility use at least one of these dose optimization techniques: automated exposure control; mA and/or kV adjustment per patient size (includes targeted exams where dose is matched to clinical indication); or iterative reconstruction. Coronal and sagittal reformatted images were created and reviewed. COMPARISON: No relevant prior studies available. FINDINGS: Vertebrae: No evidence of a fracture of the cervical vertebral bodies or posterior elements. No pathologic subluxation. Discs/Spinal canal/Neural foramina: No spinal stenosis. No neural foraminal narrowing. Soft tissues: Unremarkable. Thyroid: Calcification in the right thyroid lobe. No associated nodule. Vasculature: Right carotid artery calcification. Other findings: Fracture of the proximal right clavicle. This made be a subacute injury. Degenerative changes about temporomandibular joints. IMPRESSION: 1. No evidence of a fracture involving the cervical vertebral bodies or posterior elements. 2. Fracture of the proximal right clavicle which may be subacute in timing. 3. Calcification in the right thyroid lobe. No associated nodule. To contact [facility] with a general question: [facility] - [phone] For direct physician to physician contact: Physician Hotline - [phone] [facility] ([facility] Facility ID #[id number])
[2018-05-30 07:35] LABS: EGFR Non-African American 54.1 (>60)
--- NOTE | 2018-05-30 07:58 | RAD ---
INDICATION: Fall. COMPARISON: Comparison is made with a prior study from May 21, 2018. TECHNIQUE: 2 portable films of the chest were obtained. FINDINGS: The heart appears mildly enlarged and unchanged. The lungs are clear. No pleural effusion is seen. IMPRESSION: NO EVIDENCE FOR ACUTE FINDING. R1NF
--- NOTE | 2018-05-30 08:02 | RAD ---
Indication: LEFT hip and back pain post fall. Comparison: May 30, 2013 CT. Technique: AP pelvis, AP LEFT hip, and crosstable lateral view LEFT hip views obtained. Report: Bone density appears decreased throughout. LEFT superior and inferior healed pelvic fractures noted. Irregular cortical contours at the RIGHT superior and inferior pubic rami and junction with the os pubis are indeterminate and may be acute fractures. Irregular contour at the LEFT iliac wing is concerning for acute fracture. Negative for pelvic joint diastases. The LEFT hip is normally located. No LEFT proximal femur fracture evident. IMPRESSION: #. Probable acute fracture involving the LEFT iliac wing and potential acute fractures involving the RIGHT pubic rami. No visualized LEFT proximal femur fracture. Decreased bone density limits assessment. Consider CT for further assessment.
[2018-05-30] MEDS ORDERED: Acetaminophen TAB* 325 MG PO ONE (08:16)
[2018-05-30 09:05] LABS: Urine Appearance Clear; Urine Blood Negative (Negative); Urine Color Yellow; Urine Ketones Negative (Negative); Urine Protein Negative (Negative); Urine Specific Gravity 1.009 (1.010-1.030); Urine Urobilinogen Negative (Negative)
--- NOTE | 2018-05-30 09:20 | RAD ---
INDICATION: Left hip fracture. COMPARISON: Comparison is made with a prior CT of the abdomen and pelvis from May 30, 2013 and a prior x-ray study of the left hip from May 30, 2018. TECHNIQUE: Contiguous axial sections were obtained through the pelvis without intravenous or oral contrast. Images were reconstructed in the coronal and sagittal planes. FINDINGS: PELVIC BONES: The bones appear osteopenic. There is a focal area of sclerosis and lucency present in the posterior medial aspect of the right iliac bone suspicious for a subacute nondisplaced fracture. There is also a nondisplaced fracture of the posterior aspect of the right inferior pubic ramus with bony callus consistent with a subacute healing fracture. There also appears to be a subacute to chronic fracture of the anterior aspect of the right inferior pubic ramus which is nondisplaced. There is a subacute nondisplaced fracture of the posterior aspect of the right superior pubic ramus. There is suggestion of a faintly visualized nondisplaced fracture of the posterior aspect of the left inferior pubic ramus. There is an old healed fracture of the anterior aspect of the left inferior pubic ramus. In addition there is a nondisplaced fracture at the base of the left femoral neck extending into the greater trochanter which appears acute. BOWEL: The visualized portion of the small bowel and colon appear nondistended. LYMPH NODES: No significant enlarged pelvic or inguinal lymph nodes are seen. PERITONEUM: No free intraperitoneal air or fluid is seen. IMPRESSION: 1. ACUTE NONDISPLACED FRACTURE AT THE BASE OF THE LEFT FEMORAL NECK EXTENDING INTO THE GREATER TROCHANTER. 2. FINDINGS SUGGESTIVE OF AN ACUTE NONDISPLACED FRACTURE OF THE POSTERIOR ASPECT OF THE LEFT INFERIOR PUBIC RAMUS. 3. SUBACUTE NONDISPLACED FRACTURE OF THE POSTERIOR MEDIAL ASPECT OF THE RIGHT ILIAC BONE. 4. SUBACUTE NONDISPLACED FRACTURE OF THE POSTERIOR ASPECT OF THE RIGHT INFERIOR PUBIC RAMUS. 5. SUBACUTE TO CHRONIC NONDISPLACED FRACTURE OF THE ANTERIOR ASPECT OF THE RIGHT INFERIOR PUBIC RAMUS. 6. SUBACUTE NONDISPLACED FRACTURE OF THE POSTERIOR ASPECT OF THE RIGHT SUPERIOR PUBIC RAMUS.
[2018-05-30] MEDS ORDERED: Morphine INJ* 4 MG/ML 1 ML SYRINGE (NEW SYRINGE VERSION) IV ONE (09:57)
[2018-05-30] MEDS ORDERED: NS 0.9% 1000 ML* 1,000 ML IV SCH (12:00)
[2018-05-30] MEDS ORDERED: Acetaminophen TAB* 325 MG PO PRN (12:01)
[2018-05-30 12:49] LABS: INR 1.09 (0.77-1.02)
--- NOTE | 2018-05-30 13:05 | PN ---
Progress Note - Progress Note Date of Service: 05/30/18 SOAP: Patient was seen in the ED by myself for nondisplaced left hip fracture. Patient will be NPO after midnight and to OR on 05/31 for percutaneous pinning pending medical clearance. Full consult to be dictated shortly.
[2018-05-30] MEDS: FLUoxetine CAP* 20 MG PO SCH (13:08)
[2018-05-30] MEDS: Morphine INJ* 4 MG/ML 1 ML SYRINGE (NEW SYRINGE VERSION) IV PRN ×2 (13:09→18:30)
[2018-05-30] MEDS: Gabapentin CAP(*) 100 MG PO SCH ×2 (13:13→22:44)
[2018-05-30] MEDS: Oxybutynin TAB* 5 MG PO SCH (13:13)
[2018-05-30] MEDS ORDERED: Heparin VIAL(*) 5000 UNITS/ML VIAL (FIVE THOUSAND) SUBCUT SCH (14:00)
[2018-05-30] MEDS: oxyCODONE/Acetamin 5/325 MG* TAB PO PRN (14:58)
[2018-05-30] MEDS: Sucralfate SUSP 1 GM/10 ml 10 ML UDC PO SCH ×2 (18:17→22:44)
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
[2018-05-30] MEDS: traZODone TAB* 100 MG PO SCH (22:44)
--- NOTE | 2018-05-31 01:24 | CONS ---
CONSULTATION REPORT: DATE OF CONSULT: 05/30/18 ATTENDING SURGEON: Dr. Major Patterson. CHIEF COMPLAINT: Left hip pain. HISTORY OF PRESENT ILLNESS: The patient is a 68-year-old female who presented to the emergency department from [facility] after a fall. The patient states that she was using the toilet when she felt dizzy and; she fell to the floor. She does not remember falling because she passed out, however, she did land on her left hip and had significant hip pain right away. The patient typically ambulates without assistance at home. Movement makes the symptoms worse, rest makes them better. She denies numbness or tingling, history of DVT or PE, fever, chills, and is doing well otherwise. PAST MEDICAL HISTORY: GERD, hypertension, osteoarthritis, kyphosis. PAST SURGICAL HISTORY: Cholecystectomy, hernia repair, and gastric bypass. Patient denies prior complications of anesthesia. MEDICATIONS: Home medications on admission: 1. Carafate 0.5 g by mouth 4 times a day. 2. Ferrous sulfate 325 mg one by mouth daily. 3. Protonix 40 mg one by mouth daily. 4. Gabapentin 100 mg one by mouth 3 times a day. 5. Trazodone 100 mg by mouth at bedtime. 6. Bupropion XL 300 mg by mouth daily. 7. Prozac 60 mg by mouth daily. 8. Magnesium 400 mg by mouth daily. 9. Oxybutynin 5 mg by mouth daily. 10. Spironolactone 25 mg by mouth daily. ALLERGIES: No known drug allergies. FAMILY HISTORY: Denies pertinent family history. SOCIAL HISTORY: She is retired. She lives at [facility]. She is a former smoker. She denies alcohol consumption. REVIEW OF SYSTEMS: A 14-point review of systems was reviewed with the patient. Positive for left hip pain, abrasion to the scalp, syncope. Denies fever, chills, chest pain, shortness of breath, history of DVT or PE, history of bleeding disorder. PHYSICAL EXAM: General: A 68-year-old well-developed, well-nourished female, in no acute distress. Alert and oriented x3. Appropriate mood and affect. Appropriate balance and coordination of the lower extremity. Vitals on admission: Temperature 99.4, pulse 65, respiratory rate 18, O2 sat 99% on room air, blood pressure 106/48. She is 5 feet 3 inches and weighs 104 pounds. HEENT: Normocephalic, atraumatic. PERRLA. Neck: Supple. Throat clear. Cardiac: Regular rate and rhythm. S1 and S2. No murmurs, rubs, or gallops. No edema. Pulmonary: Lungs clear to auscultation bilaterally. No wheezes, rhonchi, or rales. Abdomen: Positive bowel sounds, soft, nontender. Neuro: Alert and oriented x3. Cranial nerves grossly intact. Musculoskeletal: Left lower extremity skin is intact. No warmth or erythema. Mild ecchymosis about the hip and the hip is tender to palpation. The knee is nontender to palpation. Calf soft, nontender. +5/5 strength to ankle dorsiflexion and plantar flexion. Able to flex and extend all of her phalanges. +2 DP pulse. Sensation intact to light touch distally. DIAGNOSTIC STUDIES/LAB DATA: Multiple x-rays of the left hip and CT of the left hip and pelvis revealed acute nondisplaced fracture of the left femoral neck extending in the greater trochanter. Also revealed acute nondisplaced fracture of the left inferior pubic rami and subacute fractures of the medial aspect of the right iliac bone, the right inferior pubic rami, and the right superior pubic rami. Those are all subacute. IMPRESSION: 1. Left hip nondisplaced femoral neck fracture. 2. Nondisplaced fracture of the left inferior pubic rami that is acute. PLAN: The patient is a 68-year-old female who was admitted to the hospital for treatment of a nondisplaced left femoral neck fracture after a fall on . The plan is for a percutaneous pinning in the morning of 05/31/[address] Patterson pending medical clearance. She will be able to eat today, however, will be n.p.o. after midnight in preparation to go to the OR tomorrow morning. We will continue to follow the patient postoperatively. MATTIE SPENCER [id number]/[facility] #: [id number] [facility] MEDICAL CENTERFreida
[2018-05-31 05:49] LABS: ABS Basophils 0 10^3/ul (0-0.2); ABS Eosinophils 0 10^3/ul (0-0.6); ABS Lymphocytes 0.4 10^3/ul (1.0-4.8); ABS Monocytes 0.2 10^3/ul (0-0.8); ABS Neutrophils 1.9 10^3/ul (1.5-7.7); ABS Nucleated RBC 0 10^3/ul; Eosinophil % 0.8 % (0-6); Hematocrit 29 % (35-47); Hemoglobin 9.6 g/dl (12.0-16.0); Lymphocyte % 17.1 % (25-47); Mean Corpuscular HGB Conc 33 g/dl (31-36); Mean Corpuscular Hemoglobin 27 pg (27-31); Mean Corpuscular Volume 83 fL (80-97); Mean Platelet Volume 7.7 um3 (7.4-10.4); Nucleated Red Blood Cells % 0; Platelet Count 62 10^3/ul (150-450); Red Blood Count 3.54 10^6/ul (4.00-5.40); Red Cell Distribution Width 19 % (10.5-15); White Blood Count 2.5 10^3/ul (3.5-10.8)
[2018-05-31 06:02] LABS: EGFR Non-African American 68.6 (>60)
[2018-05-31] MEDS: Sucralfate SUSP 1 GM/10 ml 10 ML UDC PO SCH ×4 (07:01→22:09)
[2018-05-31] MEDS: Omeprazole CAP* 20 MG PO SCH (07:01)
[2018-05-31] MEDS: D5NS 0.9% 1000 ML BAG* 1,000 ML IV SCH ×2 (07:47→19:37)
[2018-05-31] MEDS: Morphine INJ* 4 MG/ML 1 ML SYRINGE (NEW SYRINGE VERSION) IV PRN ×2 (07:57→11:38)
--- NOTE | 2018-05-31 08:40 | PN ---
Subjective Date of Service: 05/31/18 Interval History: Pt c/o pain in left hip. NPO awaiting surgery today Objective Active Medications: Acetaminophen (Tylenol Tab*) 650 mg PO Q4H PRN PRN Reason: FEVER/PAIN Bupropion HCl (Bupropion Xl*) 300 mg PO DAILY [facility] Ferrous Sulfate (Ferrous Sulfate Tab*) 325 mg PO DAILY [facility] Fluoxetine HCl (Prozac Cap*) 60 mg PO DAILY [facility] Last Admin: 05/30/18 13:08 Dose: 60 mg Gabapentin (Neurontin Cap(*)) 100 mg PO TID [facility] Last Admin: 05/30/18 22:44 Dose: 100 mg Dextrose/Sodium Chloride (D5ns 0.9% 1000 Ml Bag*) 1,000 mls @ 50 mls/hr IV PER RATE [facility] Last Admin: 05/31/18 07:47 Dose: 50 mls/hr Magnesium Oxide (Magox 400 Tab*) 400 mg PO DAILY [facility] Morphine Sulfate (Morphine Inj (Syringe)*) 2 mg IV Q2H PRN PRN Reason: PAIN Last Admin: 05/31/18 07:57 Dose: 2 mg Omeprazole (Prilosec Cap*) 20 mg PO DAILY@0600 [facility] Last Admin: 05/31/18 07:01 Dose: 20 mg Oxybutynin Chloride (Ditropan Tab*) 5 mg PO DAILY [facility] Last Admin: 05/30/18 13:13 Dose: 5 mg Oxycodone/Acetaminophen (Percocet 5/325 Tab*) 1 tab PO Q4H PRN PRN Reason: Pain Last Admin: 05/30/18 14:58 Dose: 1 tab Sucralfate (Sucralfate Susp) 0.5 gm PO 0600,1100,1600,2100 [facility] Last Admin: 05/31/18 07:01 Dose: 0.5 gm Trazodone HCl (Desyrel Tab*) 100 mg PO BEDTIME [facility] Last Admin: 05/30/18 22:44 Dose: 100 mg Vital Signs - 8 hr 05/31/18 05/31/18 05/31/18 01:07 03:20 03:25 Temperature 97.8 F 98.6 F Pulse Rate 63 Respiratory 16 18 18 Rate Blood Pressure 94/54 108/60 (mmHg) O2 Sat by Pulse 97 99 Oximetry 05/31/18 05/31/18 05/31/18 07:30 07:53 07:57 Temperature 97.2 F Pulse Rate 68 Respiratory 16 16 Rate Blood Pressure 111/49 126/68 (mmHg) O2 Sat by Pulse 98 Oximetry Oxygen Devices in Use Now: None Appearance: 68 yo f in nAD, AAOx2, poor historian Eyes: No Scleral Icterus, PERRLA Ears/Nose/Mouth/Throat: NL Teeth, Lips, Gums, Mucous Membranes Moist Neck: NL Appearance and Movements; NL JVP, Trachea Midline Respiratory: Symmetrical Chest Expansion and Respiratory Effort, Clear to Auscultation Cardiovascular: NL Sounds; No Murmurs; No JVD, RRR Abdominal: NL Sounds; No Tenderness; No Distention Lymphatic: No Cervical Adenopathy Extremities: No Edema, No Clubbing, Cyanosis Skin: No Nodules or Sclerosis, - - small ecchymoses on R upper chest Neurological: NL Muscle Strength and Tone Result Diagrams: 05/31/18 05:16 05/31/18 05:16 Microbiology and Other Data: Microbiology 05/30/18 13:15 Nasal Screen MRSA (PCR) - Final Nasal Mrsa Not Detected Assess/Plan/Problems-Billing Assessment: 68 yo F with h/o liver cirrhosis, anxiety presented a fall with pelvic bonr fx, R clavicle fx and left hip fx - Patient Problems (1) Closed left hip fracture Comment: for precutaneus pinning today Plt's at 62-chronic. D/w hematology. monitor post op , no indication for Plt transfusion so far (2) Liver cirrhosis Comment: hold Aldactone, ammonia with mild increase, but mental status at baseline (3) Pancytopenia Comment: chronic , related to liver cirrhosis (4) Encephalopathy chronic Comment: related to prior ETOH use and toxicity, not hepatic. At baseline pt is forgetful and disoriented to date will start Thiamine and folate after surgery (5) DVT prophylaxis Comment: SCD's, no anticoagulants due to thrombocytopenia Status and Disposition: Inpatient
[2018-05-31] MEDS: Magnesium Oxide TAB* 400 MG PO SCH (11:43)
[2018-05-31] MEDS: Gabapentin CAP(*) 100 MG PO SCH ×3 (11:43→22:09)
[2018-05-31] MEDS: Oxybutynin TAB* 5 MG PO SCH (11:44)
[2018-05-31] MEDS: Ferrous Sulfate TAB* 325 MG PO SCH (11:44)
--- NOTE | 2018-05-31 13:21 | PN ---
Progress Note - Progress Note Date of Service: 05/31/18 SOAP: Subjective: 68 yo female, h/o falls, fell again sustaining a non-displaced left femoral neck fx. Can only be seen by CT, CT also shows healing pelvis fractures.Patient reports left hip hurts. Objective: She has pain with any sort of hip motion. Assessment: Left hip fracture Plan: Platelets are lower at 60, and hospitalist services rashid-cytopenia due to liver cirrhosis. With the percutaneus pinning we are planning on doing, a platelet level of 60 will not be an issue. For the OR later today.
[2018-05-31] MEDS: FLUoxetine CAP* 20 MG PO SCH (15:26)
[2018-05-31] MEDS: BuPROPion XL* 300 MG TAB.XL PO SCH (15:26)
[2018-05-31] MEDS ORDERED: ceFAZolin 2 GM PREMIX in ORs 2 GM/50 ML BAG IVPB ONE (15:44)
[2018-05-31] MEDS ORDERED: Midazolam* 1 MG/ML 2 ML VIAL (2 MG) ONE (15:58)
[2018-05-31] MEDS ORDERED: Propofol* 10 MG/ML 20 ML BTL IV PUSH ONE (15:58)
[2018-05-31] MEDS ORDERED: Bupivacaine 0.25% W/EPI* 10 ML SDV ONE (16:09)
[2018-05-31] MEDS ORDERED: Naloxone* 0.4 MG/ML 1 ML VIAL IV PRN (16:26)
[2018-05-31] MEDS ORDERED: Ondansetron INJ* 2 MG/ML VIAL IV PRN ×2 (16:26→18:39)
[2018-05-31] MEDS ORDERED: fentaNYL* 50 MCG/ML 2 ML VIAL (100 MCG VIAL) ONE (17:21)
[2018-05-31] MEDS: fentaNYL* 50 MCG/ML 2 ML VIAL (100 MCG VIAL) IV PRN ×5 (17:23→17:47)
--- NOTE | 2018-05-31 17:29 | RAD ---
INDICATION: Left hip fracture operative reduction and internal fixation. COMPARISON: Comparison is made with a prior CT of the pelvis from May 30, 2018. TECHNIQUE: 58.3 seconds of intermitted fluoroscopic were provided and AP and lateral films of the left hip were obtained in the operating room. FINDINGS: The films demonstrate placement of 3 surgical pins spanning the nondisplaced fracture at the base of the femoral neck. IMPRESSION: INTRAOPERATIVE CONTROL FILMS. CPT II Codes: G9500
[2018-05-31] MEDS: oxyCODONE/Acetamin 5/325 MG* TAB PO PRN (19:41)
[2018-05-31] MEDS: traZODone TAB* 100 MG PO SCH (22:09)
[2018-06-01] MEDS: oxyCODONE/Acetamin 5/325 MG* TAB PO PRN ×4 (00:06→17:19)
[2018-06-01] MEDS: ceFAZolin 1 GM* X 3 DOSES POST-OP Q8H (AddVan) IVPB SCH ×6 (00:06→17:08)
--- NOTE | 2018-06-01 00:16 | OP ---
OPERATIVE REPORT: DATE OF OPERATION: 05/31/18 DATE OF : 52 SURGEON: Major Patterson MD ANESTHESIA: General. PRE-OP DIAGNOSIS: Nondisplaced left femoral neck fracture. POST-OP DIAGNOSIS: Nondisplaced left femoral neck fracture. OPERATIVE PROCEDURE: Percutaneous pinning, left hip fracture. INDICATIONS: Ms. Perez is a 68-year-old female, who had fallen again and was complaining of left hip pain. X-rays were read as negative except for an older pelvis fracture and she underwent a CAT scan. CAT scan showed the healing pelvis fractures and radiologist identified a nondisplaced femoral neck fracture. I had difficulty seeing the fracture and with discussion with him, he pointed out to me where there were breaks in the cortices of the base of the femoral neck. I discussed with Ms. Perez that a percutaneous pinning should work well to hold the femoral head in place so that it does not displace, because if it did then she would need at least a hemiarthroplasty. Risks of surgery such as nonhealing of the bone, scar formation, stiffness, DVT, and pulmonary embolism were some of the risks discussed. She had been declared medically optimized and wished to proceed. ESTIMATED BLOOD LOSS: 25 cc. COMPLICATIONS: None. DESCRIPTION OF PROCEDURE: The patient was brought to the OR and an LMA was placed. She was transferred to the fracture table and placed in gentle traction as the fracture was nondisplaced. C-arm was brought in and good views in both AP and lateral views were obtained. Left hip area was prepped and then draped. Skin over the incisional area was infiltrated using 10 cc of 0.25% Marcaine with epinephrine and an additional 20 cc would be used to inject in and around the incision site. Incision was carried down through the skin and fascia was sharply split. Straight snap was then used to spread the soft tissue so that there would be a tract for the screws to be placed. Guidewire was placed and positioning adjusted using C-arm until I liked the positioning and my angle looked good, so that I would have a nice shot along the base of the femoral neck coming up into the femoral head. Guidewire was run in the AP plane three quarters [address] way and then checked in the lateral view and I looked posterior but positioning was good. This was run the rest of the way up and into the head and checked again AP and lateral to make sure I was not too long. Portion of the guidewire that was protruding was measured and a second guidewire was placed initially by free hand but it kept rolling off the surface of the femur and then I would eventually use the multi-hole guide to position and hold it it a little anterior and superior and good positioning was obtained. The drill was passed over the guidewire and used to break the cortex and a screw placed over the first guidewire and that guidewire removed. Similarly, second guidewire was then measured and using that guidewire as a guide, third guidewire was placed. Once the third guidewire was placed, the drill was used to break the cortex of the second guidewire and a screw was placed and then the third screw was similarly placed. Screw, however, seemed to be a little bit long and as I was approaching the subcortical bone, I still had a portion of the screw neck which needed to be seated. Therefore, I thought the screw was too long and this was replaced with a shorter screw, which then fit well. Final C-arm pictures were saved in both AP and lateral planes. Wound was irrigated using a bulb syringe and the fascia was closed using 2-0 Vicryl stitch. Skin was closed using savanna. Sterile dressing was applied. The patient had the LMA removed in the OR and was stable on transfer to the recovery room. [id number]/[facility] #: [id number] SPENCER
[2018-06-01 05:56] LABS: ABS Basophils 0 10^3/ul (0-0.2); ABS Eosinophils 0 10^3/ul (0-0.6); ABS Lymphocytes 0.5 10^3/ul (1.0-4.8); ABS Monocytes 0.2 10^3/ul (0-0.8); ABS Neutrophils 2.5 10^3/ul (1.5-7.7); ABS Nucleated RBC 0 10^3/ul; Eosinophil % 0.7 % (0-6); Hematocrit 26 % (35-47); Hemoglobin 8.5 g/dl (12.0-16.0); Lymphocyte % 15.6 % (25-47); Mean Corpuscular HGB Conc 33 g/dl (31-36); Mean Corpuscular Hemoglobin 27 pg (27-31); Mean Corpuscular Volume 83 fL (80-97); Mean Platelet Volume 7.8 um3 (7.4-10.4); Nucleated Red Blood Cells % 0; Platelet Count 68 10^3/ul (150-450); Red Blood Count 3.14 10^6/ul (4.00-5.40); Red Cell Distribution Width 19 % (10.5-15); White Blood Count 3.3 10^3/ul (3.5-10.8)
[2018-06-01 06:01] LABS: EGFR Non-African American 72.6 (>60)
[2018-06-01] MEDS: Omeprazole CAP* 20 MG PO SCH (06:07)
[2018-06-01] MEDS: Sucralfate SUSP 1 GM/10 ml 10 ML UDC PO SCH ×4 (06:16→22:27)
--- NOTE | 2018-06-01 07:48 | PN ---
Subjective Date of Service: 06/01/18 Interval History: Pt feels well, Post op pain well controlled, Denies CP/SOB Objective Active Medications: Acetaminophen (Tylenol Tab*) 650 mg PO Q4H PRN PRN Reason: FEVER/PAIN Bupropion HCl (Bupropion Xl*) 300 mg PO DAILY [facility] Last Admin: 05/31/18 15:26 Dose: Not Given Ferrous Sulfate (Ferrous Sulfate Tab*) 325 mg PO DAILY [facility] Last Admin: 05/31/18 11:44 Dose: Not Given Fluoxetine HCl (Prozac Cap*) 60 mg PO DAILY [facility] Last Admin: 05/31/18 15:26 Dose: Not Given Folic Acid (Folvite Tab*) 1 mg PO DAILY [facility] Gabapentin (Neurontin Cap(*)) 100 mg PO TID [facility] Last Admin: 05/31/18 22:09 Dose: 100 mg Dextrose/Sodium Chloride (D5ns 0.9% 1000 Ml Bag*) 1,000 mls @ 50 mls/hr IV PER RATE [facility] Last Admin: 05/31/18 19:37 Dose: 50 mls/hr Cefazolin Sodium 1 gm/ Sodium (Chloride) 50 mls @ 200 mls/hr IVPB Q8H [facility] Stop: 06/01/18 16:14 Last Admin: 06/01/18 00:06 Dose: 200 mls/hr Magnesium Oxide (Magox 400 Tab*) 400 mg PO DAILY [facility] Last Admin: 05/31/18 11:43 Dose: Not Given Morphine Sulfate (Morphine Inj (Syringe)*) 2 mg IV Q2H PRN PRN Reason: PAIN Last Admin: 05/31/18 11:38 Dose: 2 mg Omeprazole (Prilosec Cap*) 20 mg PO DAILY@0600 [facility] Last Admin: 06/01/18 06:07 Dose: 20 mg Ondansetron HCl (Zofran Inj*) 4 mg IV Q6H PRN PRN Reason: NAUSEA/VOMITING Oxybutynin Chloride (Ditropan Tab*) 5 mg PO DAILY [facility] Last Admin: 05/31/18 11:44 Dose: Not Given Oxycodone/Acetaminophen (Percocet 5/325 Tab*) 1 tab PO Q4H PRN PRN Reason: Pain Last Admin: 06/01/18 06:07 Dose: 1 tab Sucralfate (Sucralfate Susp) 0.5 gm PO 0600,1100,1600,2100 [facility] Last Admin: 06/01/18 06:16 Dose: 0.5 gm Thiamine HCl (Vitamin B-1 Tab*) 100 mg PO DAILY [facility] Trazodone HCl (Desyrel Tab*) 100 mg PO BEDTIME [facility] Last Admin: 05/31/18 22:09 Dose: 100 mg Vital Signs - 8 hr 05/31/18 06/01/18 06/01/18 23:50 00:06 02:18 Temperature Pulse Rate Respiratory 18 18 18 Rate Blood Pressure (mmHg) O2 Sat by Pulse Oximetry 06/01/18 06/01/18 06/01/18 04:45 04:46 06:07 Temperature 98.6 F Pulse Rate 62 Respiratory 16 16 Rate Blood Pressure 114/54 104/58 (mmHg) O2 Sat by Pulse 100 Oximetry 06/01/18 06:12 Temperature Pulse Rate Respiratory 18 Rate Blood Pressure (mmHg) O2 Sat by Pulse Oximetry Oxygen Devices in Use Now: Nasal Cannula Appearance: 68 yo F in NAD, AAOx2 Eyes: No Scleral Icterus, PERRLA Ears/Nose/Mouth/Throat: NL Teeth, Lips, Gums, Mucous Membranes Moist Neck: NL Appearance and Movements; NL JVP, Trachea Midline Respiratory: Symmetrical Chest Expansion and Respiratory Effort, - - crackles at b/l bases Cardiovascular: NL Sounds; No Murmurs; No JVD, RRR Abdominal: NL Sounds; No Tenderness; No Distention, No Hepatosplenomegaly Lymphatic: No Cervical Adenopathy Extremities: No Edema, No Clubbing, Cyanosis Skin: No Rash or Ulcers, No Nodules or Sclerosis, - - left hip incision covered with gauze, not uncovered, no hematoma noted Neurological: NL Muscle Strength and Tone Result Diagrams: 06/01/18 04:59 06/01/18 04:59 Microbiology and Other Data: Microbiology 05/30/18 13:15 Nasal Screen MRSA (PCR) - Final Nasal Mrsa Not Detected Assess/Plan/Problems-Billing Assessment: 68 yo F with h/o liver cirrhosis, anxiety presented a fall with pelvic bone fx, R clavicle fx and left hip fx - Patient Problems (1) Closed left hip fracture Comment: s/p precutaneus pinning L hip on 05/31/18 cont PT/OT, ortho following (2) Liver cirrhosis Comment: hold Aldactone, ammonia with mild increase, but mental status at baseline (3) Pancytopenia Comment: chronic , related to liver cirrhosis with mild acute anemia (on chronic) due to post op state (4) Encephalopathy chronic Comment: related to prior ETOH use and toxicity, not hepatic. At baseline pt is forgetful and disoriented to date cont Thiamine and folate (5) Traumatic fractures of multiple bones of hip and pelvis Comment: as well as R clavicle-as per ortho , conservative tx (6) DVT prophylaxis Comment: SCD's, no anticoagulants due to thrombocytopenia Status and Disposition: Inpatient
[2018-06-01] MEDS: Morphine INJ* 4 MG/ML 1 ML SYRINGE (NEW SYRINGE VERSION) IV PRN ×2 (08:53→11:39)
[2018-06-01] MEDS: BuPROPion XL* 300 MG TAB.XL PO SCH (10:46)
[2018-06-01] MEDS: Magnesium Oxide TAB* 400 MG PO SCH (10:47)
[2018-06-01] MEDS: Gabapentin CAP(*) 100 MG PO SCH ×3 (10:47→20:43)
[2018-06-01] MEDS: FLUoxetine CAP* 20 MG PO SCH (10:47)
[2018-06-01] MEDS: Oxybutynin TAB* 5 MG PO SCH (10:47)
[2018-06-01] MEDS: Thiamine TAB* 100 MG TAB PO SCH (10:47)
[2018-06-01] MEDS: Ferrous Sulfate TAB* 325 MG PO SCH (10:47)
[2018-06-01] MEDS: Folic Acid TAB* 1 MG PO SCH (10:47)
[2018-06-01] MEDS: traMADol TAB* 50 MG PO PRN ×2 (12:19→22:26)
[2018-06-01] MEDS ORDERED: ceFAZolin 2 GM PREMIX in ORs 2 GM/50 ML BAG IVPB ONE (12:46)
[2018-06-01] MEDS: traZODone TAB* 100 MG PO SCH (20:43)
[2018-06-02] MEDS: oxyCODONE/Acetamin 5/325 MG* TAB PO PRN ×3 (04:03→17:17)
[2018-06-02] MEDS: traMADol TAB* 50 MG PO PRN ×2 (04:43→20:39)
[2018-06-02] MEDS: Omeprazole CAP* 20 MG PO SCH (04:43)
[2018-06-02] MEDS: Sucralfate SUSP 1 GM/10 ml 10 ML UDC PO SCH ×4 (06:02→22:20)
[2018-06-02] MEDS ORDERED: Docusate CAP* 100 MG PO PRN (09:13)
[2018-06-02] MEDS ORDERED: Senna TAB PO PRN (09:13)
[2018-06-02] MEDS: Magnesium Oxide TAB* 400 MG PO SCH (09:58)
[2018-06-02] MEDS: Thiamine TAB* 100 MG TAB PO SCH (09:58)
[2018-06-02] MEDS: Oxybutynin TAB* 5 MG PO SCH (09:58)
[2018-06-02] MEDS: Ferrous Sulfate TAB* 325 MG PO SCH (09:58)
[2018-06-02] MEDS: BuPROPion XL* 300 MG TAB.XL PO SCH (09:58)
[2018-06-02] MEDS: Folic Acid TAB* 1 MG PO SCH (09:58)
[2018-06-02] MEDS: FLUoxetine CAP* 20 MG PO SCH (09:58)
[2018-06-02] MEDS: Gabapentin CAP(*) 100 MG PO SCH ×3 (09:59→20:04)
[2018-06-02] MEDS ORDERED: Cyclobenzaprine TAB* 10 MG PO PRN (10:06)
--- NOTE | 2018-06-02 13:13 | PN ---
Subjective Date of Service: 06/02/18 Interval History: Resting in recliner. Feels well. Pain well controlled with current regime. Denies cp/sob. Reports mild nausea this morning after eating breakfast. Nurse notified. Family History: Unchanged from Admission Social History: Unchanged from Admission Past Medical History: Unchanged from Admission Objective Active Medications: Acetaminophen (Tylenol Tab*) 650 mg PO Q4H PRN PRN Reason: FEVER/PAIN Bupropion HCl (Bupropion Xl*) 300 mg PO DAILY [facility] BEDS AT [facility] Last Admin: 06/02/18 09:58 Dose: 300 mg Cyclobenzaprine HCl (Flexeril Tab*) 10 mg PO TID PRN PRN Reason: Muscle pain/spasm Last Admin: 06/02/18 12:48 Dose: 10 mg Ferrous Sulfate (Ferrous Sulfate Tab*) 325 mg PO DAILY [facility] 234 BEDS AT [facility] Last Admin: 06/02/18 09:58 Dose: 325 mg Fluoxetine HCl (Prozac Cap*) 60 mg PO DAILY [facility] 234 B[facility]S AT [facility] Last Admin: 06/02/18 09:58 Dose: 60 mg Folic Acid (Folvite Tab*) 1 mg PO DAILY [facility] 234 B[facility]S AT [facility] Last Admin: 06/02/18 09:58 Dose: 1 mg Gabapentin (Neurontin Cap(*)) 100 mg PO TID [facility] 234 B[facility]S AT [facility] Last Admin: 06/02/18 09:59 Dose: 100 mg Magnesium Oxide (Magox 400 Tab*) 400 mg PO DAILY [facility] 234 B[facility]S AT [facility] Last Admin: 06/02/18 09:58 Dose: 400 mg Morphine Sulfate (Morphine Inj (Syringe)*) 2 mg IV Q2H PRN PRN Reason: PAIN Last Admin: 06/01/18 11:39 Dose: 2 mg Omeprazole (Prilosec Cap*) 20 mg PO DAILY@0600 [facility] 234 B[facility]S [facility] Last Admin: 06/02/18 04:43 Dose: 20 mg Ondansetron HCl (Zofran Inj*) 4 mg IV Q6H PRN PRN Reason: NAUSEA/VOMITING Last Admin: 06/01/18 08:53 Dose: 4 mg Oxybutynin Chloride (Ditropan Tab*) 5 mg PO DAILY [facility] 234 BEDS AT [facility] Last Admin: 06/02/18 09:58 Dose: 5 mg Oxycodone/Acetaminophen (Percocet 5/325 Tab*) 1 tab PO Q4H PRN PRN Reason: Pain Last Admin: 06/02/18 09:59 Dose: 1 tab Sucralfate (Sucralfate Susp) 0.5 gm PO 0600,1100,1600,2100 [facility] 234 BEDS AT [facility] Last Admin: 06/02/18 12:48 Dose: 0.5 gm Thiamine HCl (Vitamin B-1 Tab*) 100 mg PO DAILY [facility] 234 BEDS AT [facility] Last Admin: 06/02/18 09:58 Dose: 100 mg Tramadol HCl (Ultram*) 50 mg PO Q6H PRN PRN Reason: PAIN Last Admin: 06/02/18 04:43 Dose: 50 mg Trazodone HCl (Desyrel Tab*) 100 mg PO BEDTIME [facility] 234 BEDS AT [facility] Last Admin: 06/01/18 20:43 Dose: 100 mg Vital Signs - 8 hr 06/02/18 06/02/18 06/02/18 06:04 07:12 07:34 Temperature 98.6 F Pulse Rate 70 Respiratory 16 16 17 Rate Blood Pressure 112/48 (mmHg) O2 Sat by Pulse 99 Oximetry 06/02/18 06/02/18 06/02/18 08:00 09:59 12:48 Temperature Pulse Rate Respiratory 17 18 18 Rate Blood Pressure (mmHg) O2 Sat by Pulse Oximetry 06/02/18 06/02/18 12:50 12:51 Temperature Pulse Rate Respiratory 18 18 Rate Blood Pressure (mmHg) O2 Sat by Pulse Oximetry Oxygen Devices in Use Now: None Appearance: Comfortable, NAD Eyes: No Scleral Icterus Ears/Nose/Mouth/Throat: Clear Oropharnyx, Mucous Membranes Moist Neck: NL Appearance and Movements; NL JVP Respiratory: Symmetrical Chest Expansion and Respiratory Effort, Clear to Auscultation Cardiovascular: NL Sounds; No Murmurs; No JVD, RRR, No Edema Abdominal: NL Sounds; No Tenderness; No Distention Lymphatic: No Cervical Adenopathy Extremities: No Edema Skin: No Rash or Ulcers, - - Dressing to left hip CDI Neurological: Alert and Oriented x 3, NL Muscle Strength and Tone Nutrition: Taking PO's Result Diagrams: 06/01/18 04:59 06/01/18 04:59 Microbiology and Other Data: Microbiology 05/30/18 13:15 Nasal Screen MRSA (PCR) - Final Nasal Mrsa Not Detected Assess/Plan/Problems-Billing Assessment: 68 yo F with h/o liver cirrhosis, anxiety presented a fall with pelvic bone fx, R clavicle fx and left hip fx - Patient Problems (1) Closed left hip fracture Comment: - s/p POD 2 precutaneus pinning L hip on 05/31/18 - cont PT/OT - ortho following (2) Traumatic fractures of multiple bones of hip and pelvis Comment: - R clavicle-as per ortho , conservative tx (3) Encephalopathy chronic Comment: - Related to prior ETOH use and toxicity, not hepatic. - Patient alert and oriented x3 today. - Cont Thiamine and folate (4) Nausea Comment: - Reported nausea this morning after eating, no vomiting - Has prn Zofran. - Will monitor. (5) Liver cirrhosis Comment: - hold Aldactone - ammonia with mild increase on 05/31, will repeat tomorrow - cmp and cbc also ordered for tomorrow (6) Pancytopenia Comment: - chronic , related to liver cirrhosis - Mild acute anemia (on chronic) due to post op state. - Recheck CBC tomorrow (7) DVT prophylaxis Comment: - SCD's, no anticoagulants due to thrombocytopenia Status and Disposition: Inpatient. Discharge to Acute [facility]hab where she was residing when medically stable. Attending: Cosmo Flowers
--- NOTE | 2018-06-02 13:29 | PN ---
Progress Note - Progress Note Date of Service: 06/02/18 SOAP: Subjective: [] Patient seen and examined at bedside. Denies CP, SOB, dizziness, nausea. Left hip pain is well controlled. Objective: []General: Well appearing, NAD LLE: Dressing CDI, incision without erythema or discharge. Thigh is soft. DF/PF intact. Sensation intact distally. DP2+ Calves supple and nontender without erythema, edema or palpable cords Assessment: []SP L hip percutaneous pinning Plan: []TTWB LLE Sling for RUE due to clavicle fracture - Due to TTWB status on the left side if patient requires right arm to stabilize she may use it in a limited fashion as it is imperative to avoid future falls. Avoid use of RUE as able. DVT prophylaxis: optimally needs 30 days chemical DVT prophylaxis post op, using SCDs only due to thrombocytopenia. Please ensure SCDs are being used. Daily dressing change with betadine or antibiotic ointment, gauze and tape Follow up with Dr Patterson 10-14 days post op Vital Signs Temp 98.6 F 06/02/18 07:34 Pulse 70 06/02/18 07:34 Resp 18 06/02/18 12:51 BP 112/48 06/02/18 07:34 Pulse Ox 99 06/02/18 07:34 Intake & Output 06/01/18 06/02/18 06/02/18 18:59 06:59 18:59 Intake Total 100 500 210 Output Total 300 0 Balance -200 500 210 Intake: Oral 100 500 210 Output: Urine 0 [place] 300 Other: Estimated Void Large Estimated Stool Amount Large Laboratory Last Values WBC 3.3 10^3/ul (3.5-10.8) L 06/01/18 04:59 RBC 3.14 10^6/ul (4.00-5.40) L 06/01/18 04:59 Hgb 8.5 g/dl (12.0-16.0) L 06/01/18 04:59 Hct 26 % (35-47) L 06/01/18 04:59 MCV 83 fL (80-97) 06/01/18 04:59 MCH 27 pg (27-31) 06/01/18 04:59 MCHC 33 g/dl (31-36) 06/01/18 04:59 RDW 19 % (10.5-15) H 06/01/18 04:59 Plt Count 68 10^3/ul (150-450) L 06/01/18 04:59 MPV 7.8 um3 (7.4-10.4) 06/01/18 04:59 Neut % (Auto) 76.5 % (38-83) 06/01/18 04:59 Lymph % (Auto) 15.6 % (25-47) L 06/01/18 04:59 [place] % (Auto) 7.1 % (0-7) H 06/01/18 04:59 Eos % (Auto) 0.7 % (0-6) 06/01/18 04:59 Baso % (Auto) 0.1 % (0-2) 06/01/18 04:59 Absolute Neuts (auto) 2.5 10^3/ul (1.5-7.7) 06/01/18 04:59 Absolute Lymphs (auto) 0.5 10^3/ul (1.0-4.8) L 06/01/18 04:59 Absolute Monos (auto) 0.2 10^3/ul (0-0.8) 06/01/18 04:59 Absolute Eos (auto) 0 10^3/ul (0-0.6) 06/01/18 04:59 Absolute Basos (auto) 0 10^3/ul (0-0.2) 06/01/18 04:59 Absolute Nucleated RBC 0 10^3/ul 06/01/18 04:59 Nucleated RBC % 0 06/01/18 04:59 Hem Pathologist Commnt 05/30/18 06:18 INR (Anticoag Therapy) 1.09 (0.77-1.02) H 05/30/18 12:22 Sodium 135 mmol/L (135-145) 06/01/18 04:59 Potassium 4.2 mmol/L (3.5-5.0) 06/01/18 04:59 Chloride 107 mmol/L (101-111) 06/01/18 04:59 Carbon Dioxide 25 mmol/L (22-32) 06/01/18 04:59 Anion Gap 3 mmol/L (2-11) 06/01/18 04:59 BUN 13 mg/dL (6-24) 06/01/18 04:59 Creatinine 0.79 mg/dL (0.51-0.95) 06/01/18 04:59 Est GFR ( Amer) 87.8 (>60) 06/01/18 04:59 Est GFR (Non-Af Amer) 72.6 (>60) 06/01/18 04:59 BUN/Creatinine Ratio 16.5 (8-20) 06/01/18 04:59 Glucose 102 mg/dL (70-100) H 06/01/18 04:59 Calcium 8.1 mg/dL (8.6-10.3) L 06/01/18 04:59 Magnesium 2.1 mg/dL (1.9-2.7) 05/30/18 06:18 Total Bilirubin 0.60 mg/dL (0.2-1.0) 05/30/18 06:18 AST 43 U/L (13-39) H 05/30/18 06:18 ALT 32 U/L (7-52) 05/30/18 06:18 Alkaline Phosphatase 117 U/L (34-104) H 05/30/18 06:18 Ammonia 56 mcmol/L (16-53) H 05/30/18 15:16 Troponin I 0.00 ng/mL (<0.04) 05/30/18 06:18 Total Protein 6.2 g/dL (6.4-8.9) L 05/30/18 06:18 Albumin 3.3 g/dL (3.2-5.2) 05/30/18 06:18 Globulin 2.9 g/dL (2-4) 05/30/18 06:18 Albumin/Globulin Ratio 1.1 (1-3) 05/30/18 06:18 Urine Color Yellow 05/30/18 08:30 Urine Appearance Clear 05/30/18 08:30 Urine pH 7.0 (5-9) 05/30/18 08:30 Ur Specific [place] 1.009 (1.010-1.030) L 05/30/18 08:30 Urine Protein Negative (Negative) 05/30/18 08:30 Urine Ketones Negative (Negative) 05/30/18 08:30 Urine Blood Negative (Negative) 05/30/18 08:30 Urine Nitrate Negative (Negative) 05/30/18 08:30 Urine Bilirubin Negative (Negative) 05/30/18 08:30 Urine Urobilinogen Negative (Negative) 05/30/18 08:30 Ur Leukocyte Esterase Negative (Negative) 05/30/18 08:30 Urine Glucose Negative (Negative) 05/30/18 08:30
[2018-06-02] MEDS ORDERED: Metaxalone TAB* 800 MG PO PRN (13:34)
[2018-06-02] MEDS: traZODone TAB* 100 MG PO SCH (20:05)
[2018-06-03] MEDS: Omeprazole CAP* 20 MG PO SCH (04:41)
[2018-06-03] MEDS: oxyCODONE/Acetamin 5/325 MG* TAB PO PRN ×2 (04:45→11:07)
[2018-06-03 05:29] LABS: ABS Basophils 0 10^3/ul (0-0.2); ABS Eosinophils 0 10^3/ul (0-0.6); ABS Lymphocytes 0.5 10^3/ul (1.0-4.8); ABS Monocytes 0.2 10^3/ul (0-0.8); ABS Neutrophils 1.7 10^3/ul (1.5-7.7); ABS Nucleated RBC 0 10^3/ul; Eosinophil % 1.1 % (0-6); Hematocrit 25 % (35-47); Hemoglobin 8.1 g/dl (12.0-16.0); Lymphocyte % 18.8 % (25-47); Mean Corpuscular HGB Conc 33 g/dl (31-36); Mean Corpuscular Hemoglobin 27 pg (27-31); Mean Corpuscular Volume 83 fL (80-97); Mean Platelet Volume 7.7 um3 (7.4-10.4); Nucleated Red Blood Cells % 0; Platelet Count 73 10^3/ul (150-450); Red Cell Distribution Width 19 % (10.5-15); White Blood Count 2.5 10^3/ul (3.5-10.8)
[2018-06-03 05:35] LABS: EGFR Non-African American 74.8 (>60)
[2018-06-03] MEDS: Sucralfate SUSP 1 GM/10 ml 10 ML UDC PO SCH ×2 (06:02→11:01)
[2018-06-03] MEDS: Folic Acid TAB* 1 MG PO SCH (08:30)
[2018-06-03] MEDS: Gabapentin CAP(*) 100 MG PO SCH (08:30)
[2018-06-03] MEDS: FLUoxetine CAP* 20 MG PO SCH (08:30)
[2018-06-03] MEDS: Oxybutynin TAB* 5 MG PO SCH (08:31)
[2018-06-03] MEDS: Ferrous Sulfate TAB* 325 MG PO SCH (08:31)
[2018-06-03] MEDS: traMADol TAB* 50 MG PO PRN (08:31)
[2018-06-03] MEDS: BuPROPion XL* 300 MG TAB.XL PO SCH (08:31)
[2018-06-03] MEDS: Magnesium Oxide TAB* 400 MG PO SCH (08:31)
[2018-06-03] MEDS: Thiamine TAB* 100 MG TAB PO SCH (08:32)
--- NOTE | 2018-06-03 09:03 | PN ---
Progress Note - Progress Note Date of Service: 06/03/18 SOAP: Subjective: []Patient was seen and examined OOB in chair. She is feeling well with tolerable left hip pain. Denies any chest pain, shortness of breath, dizziness, nausea. Objective: [] General: Well appearing, NAD LLE: Dressing changed, incision CDI, incision without erythema or discharge. Thigh is soft. DF/PF intact. Sensation intact distally. DP2+ Calves supple and nontender without erythema, edema or palpable cords Assessment: []SP L hip percutaneous pinning Plan: []TTWB LLE Sling for RUE due to clavicle fracture - Due to TTWB status on the left side if patient requires right arm to stabilize she may use it in a limited fashion as it is imperative to avoid future falls. Avoid use of RUE as able. DVT prophylaxis: optimally needs 30 days chemical DVT prophylaxis post op, using SCDs only due to thrombocytopenia. Please ensure SCDs are being used. Daily dressing change with betadine or antibiotic ointment, gauze and tape Follow up with Dr Patterson 10-14 days post op DC today per medicine Vital Signs Temp 98.7 F 06/03/18 08:12 Pulse 76 06/03/18 08:12 Resp 18 06/03/18 08:31 BP 104/59 06/03/18 08:12 Pulse Ox 98 06/03/18 08:12 Intake & Output 06/02/18 06/03/18 06/03/18 18:59 06:59 18:59 Intake Total 410 760 Output Total 300 Balance 110 760 Intake: Oral 410 760 Output: Urine 300 Other: Estimated Void Large Estimated Stool Amount Large # Voids 1 Laboratory Last Values WBC 2.5 10^3/ul (3.5-10.8) L 06/03/18 05:06 RBC 3.00 10^6/ul (4.00-5.40) L 06/03/18 05:06 Hgb 8.1 g/dl (12.0-16.0) L 06/03/18 05:06 Hct 25 % (35-47) L 06/03/18 05:06 MCV 83 fL (80-97) 06/03/18 05:06 MCH 27 pg (27-31) 06/03/18 05:06 MCHC 33 g/dl (31-36) 06/03/18 05:06 RDW 19 % (10.5-15) H 06/03/18 05:06 Plt Count 73 10^3/ul (150-450) L 06/03/18 05:06 MPV 7.7 um3 (7.4-10.4) 06/03/18 05:06 Neut % (Auto) 69.9 % (38-83) 06/03/18 05:06 Lymph % (Auto) 18.8 % (25-47) L 06/03/18 05:06 [place] % (Auto) 9.7 % (0-7) H 06/03/18 05:06 Eos % (Auto) 1.1 % (0-6) 06/03/18 05:06 Baso % (Auto) 0.5 % (0-2) 06/03/18 05:06 Absolute Neuts (auto) 1.7 10^3/ul (1.5-7.7) 06/03/18 05:06 Absolute Lymphs (auto) 0.5 10^3/ul (1.0-4.8) L 06/03/18 05:06 Absolute Monos (auto) 0.2 10^3/ul (0-0.8) 06/03/18 05:06 Absolute Eos (auto) 0 10^3/ul (0-0.6) 06/03/18 05:06 Absolute Basos (auto) 0 10^3/ul (0-0.2) 06/03/18 05:06 Absolute Nucleated RBC 0 10^3/ul 06/03/18 05:06 Nucleated RBC % 0 06/03/18 05:06 Hem Pathologist Commnt 05/30/18 06:18 INR (Anticoag Therapy) 1.09 (0.77-1.02) H 05/30/18 12:22 Sodium 135 mmol/L (135-145) 06/03/18 05:06 Potassium 4.4 mmol/L (3.5-5.0) 06/03/18 05:06 Chloride 105 mmol/L (101-111) 06/03/18 05:06 Carbon Dioxide 28 mmol/L (22-32) 06/03/18 05:06 Anion Gap 2 mmol/L (2-11) 06/03/18 05:06 BUN 18 mg/dL (6-24) 06/03/18 05:06 Creatinine 0.77 mg/dL (0.51-0.95) 06/03/18 05:06 Est GFR ( Amer) 90.5 (>60) 06/03/18 05:06 Est GFR (Non-Af Amer) 74.8 (>60) 06/03/18 05:06 BUN/Creatinine Ratio 23.4 (8-20) H 06/03/18 05:06 Glucose 88 mg/dL (70-100) 06/03/18 05:06 Calcium 8.3 mg/dL (8.6-10.3) L 06/03/18 05:06 Magnesium 2.1 mg/dL (1.9-2.7) 05/30/18 06:18 Total Bilirubin 0.50 mg/dL (0.2-1.0) 06/03/18 05:06 AST 22 U/L (13-39) 06/03/18 05:06 ALT 12 U/L (7-52) 06/03/18 05:06 Alkaline Phosphatase 109 U/L (34-104) H 06/03/18 05:06 Ammonia 35 mcmol/L (16-53) 06/03/18 05:06 Troponin I 0.00 ng/mL (<0.04) 05/30/18 06:18 Total Protein 5.2 g/dL (6.4-8.9) L 06/03/18 05:06 Albumin 2.8 g/dL (3.2-5.2) L 06/03/18 05:06 Globulin 2.4 g/dL (2-4) 06/03/18 05:06 Albumin/Globulin Ratio 1.2 (1-3) 06/03/18 05:06 Urine Color Yellow 05/30/18 08:30 Urine Appearance Clear 05/30/18 08:30 Urine pH 7.0 (5-9) 05/30/18 08:30 Ur Specific [place] 1.009 (1.010-1.030) L 05/30/18 08:30 Urine Protein Negative (Negative) 05/30/18 08:30 Urine Ketones Negative (Negative) 05/30/18 08:30 Urine Blood Negative (Negative) 05/30/18 08:30 Urine Nitrate Negative (Negative) 05/30/18 08:30 Urine Bilirubin Negative (Negative) 05/30/18 08:30 Urine Urobilinogen Negative (Negative) 05/30/18 08:30 Ur Leukocyte Esterase Negative (Negative) 05/30/18 08:30 Urine Glucose Negative (Negative) 05/30/18 08:30
--- NOTE | 2018-06-03 11:10 | DCNOTE ---
Subjective Date of Service: 06/03/18 Interval History: Resting in recliner. Pain to left hip is tolerable. Also reports mild nausea, but improved since yesterday States she feels ready for discharge to [facility] 12 point ROS completed and all others negative besides above mentioned. Family History: Unchanged from Admission Social History: Unchanged from Admission Past Medical History: Unchanged from Admission Objective Active Medications: Acetaminophen (Tylenol Tab*) 650 mg PO Q4H PRN PRN Reason: FEVER/PAIN Bupropion HCl (Bupropion Xl*) 300 mg PO DAILY [facility] Last Admin: 06/03/18 08:31 Dose: 300 mg Ferrous Sulfate (Ferrous Sulfate Tab*) 325 mg PO DAILY [facility] Last Admin: 06/03/18 08:31 Dose: 325 mg Fluoxetine HCl (Prozac Cap*) 60 mg PO DAILY [facility] Last Admin: 06/03/18 08:30 Dose: 60 mg Folic Acid (Folvite Tab*) 1 mg PO DAILY [facility] Last Admin: 06/03/18 08:30 Dose: 1 mg Gabapentin (Neurontin Cap(*)) 100 mg PO TID [facility] Last Admin: 06/03/18 08:30 Dose: 100 mg Magnesium Oxide (Magox 400 Tab*) 400 mg PO DAILY [facility] Last Admin: 06/03/18 08:31 Dose: 400 mg Metaxalone (Skelaxin Tab*) 400 mg PO TID PRN PRN Reason: MUSCLE PAIN/SPASMS Morphine Sulfate (Morphine Inj (Syringe)*) 2 mg IV Q2H PRN PRN Reason: PAIN Last Admin: 06/01/18 11:39 Dose: 2 mg Omeprazole (Prilosec Cap*) 20 mg PO DAILY@0600 [facility] Last Admin: 06/03/18 04:41 Dose: 20 mg Ondansetron HCl (Zofran Inj*) 4 mg IV Q6H PRN PRN Reason: NAUSEA/VOMITING Last Admin: 06/01/18 08:53 Dose: 4 mg Oxybutynin Chloride (Ditropan Tab*) 5 mg PO DAILY [facility] Last Admin: 06/03/18 08:31 Dose: 5 mg Oxycodone/Acetaminophen (Percocet 5/325 Tab*) 1 tab PO Q4H PRN PRN Reason: Pain Last Admin: 06/03/18 04:45 Dose: 1 tab Sucralfate (Sucralfate Susp) 0.5 gm PO 0600,1100,1600,2100 [facility] Last Admin: 06/03/18 11:01 Dose: 0.5 gm Thiamine HCl (Vitamin B-1 Tab*) 100 mg PO DAILY [facility] Last Admin: 06/03/18 08:32 Dose: 100 mg Tramadol HCl (Ultram*) 50 mg PO Q6H PRN PRN Reason: PAIN Last Admin: 06/03/18 08:31 Dose: 50 mg Trazodone HCl (Desyrel Tab*) 100 mg PO BEDTIME [facility] Last Admin: 06/02/18 20:05 Dose: 100 mg Vital Signs - 8 hr 06/03/18 06/03/18 06/03/18 03:50 04:45 07:07 Temperature 98.3 F Pulse Rate 78 Respiratory 16 16 16 Rate Blood Pressure 108/54 (mmHg) O2 Sat by Pulse 99 Oximetry 06/03/18 06/03/18 06/03/18 08:00 08:12 08:30 Temperature 98.7 F Pulse Rate 76 Respiratory 18 16 18 Rate Blood Pressure 104/59 (mmHg) O2 Sat by Pulse 98 98 Oximetry 06/03/18 06/03/18 08:31 11:02 Temperature Pulse Rate Respiratory 18 18 Rate Blood Pressure (mmHg) O2 Sat by Pulse Oximetry Oxygen Devices in Use Now: None Appearance: Comfortable, Cooperative, NAD Eyes: No Scleral Icterus Ears/Nose/Mouth/Throat: Clear Oropharnyx, Mucous Membranes Moist Neck: NL Appearance and Movements; NL JVP Respiratory: Symmetrical Chest Expansion and Respiratory Effort, Clear to Auscultation Cardiovascular: NL Sounds; No Murmurs; No JVD, RRR, No Edema Abdominal: NL Sounds; No Tenderness; No Distention Extremities: No Edema Skin: No Rash or Ulcers Neurological: Alert and Oriented x 3, NL Sensation Nutrition: Taking PO's Result Diagrams: 06/03/18 05:06 06/03/18 05:06 Microbiology and Other Data: Microbiology 05/30/18 13:15 Nasal Screen MRSA (PCR) - Final Nasal Mrsa Not Detected Assess/Plan/Problems-Billing Assessment: 68 yo F with h/o liver cirrhosis, anxiety presented a fall with pelvic bone fx, R clavicle fx and left hip fx - Patient Problems (1) Closed left hip fracture Comment: - s/p POD 3 precutaneus pinning L hip on 05/31/18 - Plan per ortho: TTWB LLE , Sling for RUE due to clavicle fracture - Due to TTWB status on the left side if patient requires right arm to stabilize she may use it in a limited fashion as it is imperative to avoid future falls. Avoid use of RUE as able. - DVT prophylaxis: Due to thrombocytopenia patient will not be anticoagulated as risks out weigh benefit. - Daily dressing change with betadine or antibiotic ointment, gauze and tape - Follow up with Dr Patterson 10-14 days post op Vital Signs (2) Traumatic fractures of multiple bones of hip and pelvis Comment: - R clavicle-as per ortho , conservative tx (3) Encephalopathy chronic Comment: - Related to prior ETOH use and toxicity, not hepatic. - Patient alert and oriented x3 today. - Cont Thiamine and folate (4) Nausea Comment: - Reported nausea this morning but, no vomiting. Reports nausea has improved since yesterday. (5) Liver cirrhosis Comment: - Resume Aldactone - Ammonia within normal limits (6) Pancytopenia Comment: - chronic , related to liver cirrhosis - Mild acute anemia (on chronic) due to post op state. (7) DVT prophylaxis Comment: - No anticoagulants due to thrombocytopenia Status and Disposition: Inpatient. Patient is medically stable for discharge back to [facility]. Attending: Manuel Nichole
[2018-06-03 12:02] VITALS: BP 116/51
--- NOTE | 2018-06-03 14:19 | DS ---
AMENDED REPORT NOW INCLUDES DESIGNATED COSIGNER CC: Dr. Purcell; [facility]; Dr. Patterson * DATE OF ADMISSION: 05/30/2018. DATE OF DISCHARGE: 06/03/2018. PRIMARY CARE PHYSICIAN: Dr. Purcell, [facility], Dr. Patterson. ATTENDING PHYSICIAN: Dr. Nichole * (dictated by Sheron Grissom NP). PRIMARY DIAGNOSES: 1. Closed hip fracture. 2. Status post percutaneous pinning left hip. 3. Traumatic fractures of multiple bones in hip and pelvis. SECONDARY DIAGNOSES: 1. Chronic encephalopathy. 2. Nausea. 3. Liver cirrhosis. 4. Pancytopenia. CONSULTATIONS WHILE IN THE HOSPITAL: Dr. Peralta. PROCEDURE WHILE IN THE HOSPITAL: Percutaneous pinning left hip. PERTINENT STUDIES WHILE IN THE HOSPITAL: 1. Pelvis CT: Impression: Acute nondisplaced fracture at the base of the left femoral neck extending into the greater trochanter. Findings suggestive of an acute nondisplaced fracture of the posterior aspect of the left inferior pubic ramus. Subacute nondisplaced fracture of the posterior medial aspect of the right iliac bone. Subacute nondisplaced fracture of the posterior aspect of the right inferior pubic ramus. Subacute to chronic nondisplaced fracture of the anterior aspect of the right inferior pubic ramus. Subacute nondisplaced fracture of the posterior aspect of the right superior pubic ramus. 2. Brain CT: Impression: No evidence of acute intracranial hemorrhage. No intracranial mass or obstructive hydrocephalus. 3. CT cervical spine: Impression: No evidence of a fracture involving the cervical vertebral bodies or posterior elements. Fracture of the proximal right clavicle which may be subacute in timing. Calcification in the right thyroid lobe. No associated nodule. DISCHARGE MEDICATIONS: New home medications: 1. Skelaxin 400 mg orally 3 times a day as needed. 2. Percocet 5/325 one tab orally every 4 hours as needed. 3. Thiamine 100 mg orally every day. 4. Folic Acid 1 mg daily Continued home medications: 1. Carafate 0.5 mg orally 4 times a day. 2. Ferrous Sulfate 325 mg oral every day. 3. Protonix 40 mg oral every day. 4. Gabapentin 100 mg oral 3 times a day. 5. Trazodone 100 mg oral at bedtime. 6. Bupropion XL 300 mg orally every day. 7. Prozac 60 mg orally every day. 8. Magnesium 400 mg orally every day. 9. Ditropan 5 mg orally every day. 10. Spironolactone 25 mg oral every day. Changed home medications: No home medications were changed. Discontinued home medications: No home medications were discontinued. HISTORY OF PRESENT ILLNESS: Ms. Perez is a 68-year-old female with a past medical history of liver cirrhosis, mild encephalopathy, GERD, depression, and anxiety who presented to the ED on May 30 from [facility] where she got up in the middle of the night without assistance to go to the bathroom. She stood from the toilet seat, got dizzy and fell. She was found to have a left femoral neck fracture, right clavicular fracture, and pelvic fractures. She was admitted to the Surgical Unit for pinning of the left hip which was performed on 05/31/2018. Please see history and physical dictated by Dr. Howard for complete summary of events leading up to this hospitalization. During this hospitalization, the patient underwent percutaneous left hip pinning on 05/31/2018. She was evaluated by Physical Therapy and Ortho. She is to be toe touch weightbearing on the left lower extremity, use sling for right upper extremity due to the clavicular fracture, and avoid use of right upper extremity as able. It should be noted that due to toe touch weightbearing on the left side, if patient requires arm to stabilized she may use it in a limited fashion in order to avoid falls. During the hospital stay she was also noted to be pancytopenic which is chronic for this patient due to her liver cirrhosis. Due to this condition, we have decided that risks outweigh benefits of anticoagulation; therefore, she will not be anticoagulated. Liver cirrhosis: Ammonia was mildly elevated on admission, but has normalized today. The patient may resume Aldactone as ordered as outpatient. Encephalopathy which is chronic for this patient related to prior ETOH use and toxicity, it is not hepatic. Today she is alert and oriented times three. It would be beneficial if the patient continues Thiamine and Folate. DISCHARGE PLAN: Ms. Perez will be DC'd back to [facility], [place] where she was residing for rehabilitation. The patient is also to have daily dressing change with Betadine or antibiotic ointment, gauze, and tape. The patient should return to the emergency room or nearest hospital if she experiences any shortness of breath, lightheadedness, dizziness, chest discomfort, high fevers, increase in pain, weakness, change in circulation, or any other worsening signs or symptoms. ACTIVITY: Toe touch weightbearing to left lower extremity. DIET: Unrestricted as tolerated. MEDICATIONS: As mentioned above. FOLLOW-UP: The patient is to follow-up with Dr. Patterson in 10 to 14 days postop. This is a summarized report of a complex medical history and hospital stay. For further details, please see the entire medical record. TIME SPENT: Approximately 45 minutes were spent on this discharge, half that time was spent [id number] with the patient discussing discharge plans and instructions. SHERON GRISSOM NP [id number]/CPS #: [id number] [place]
== END 2018-06-03 14:10 | DRG 956 ==
LOC: ED 05:40 → SSU 11:40
PROVIDERS: ADMIT Internal Medicine; ATTEND Internal Medicine
PROC: 0QH734Z Insertion of Internal Fixation Device into Left Upper Femur, Percutaneous Approach (ICD-10-PCS; principal; 2018-05-31 13:45)
DX: S72.045A Nondisplaced fracture of base of neck of left femur, initial encounter for closed fracture (principal); S32.592A Other specified fracture of left pubis, initial encounter for closed fracture; S32.301A Unspecified fracture of right ilium, initial encounter for closed fracture; S32.591A Other specified fracture of right pubis, initial encounter for closed fracture; G93.49 Other encephalopathy; D61.818 Other pancytopenia; D62 Acute posthemorrhagic anemia; K70.30 Alcoholic cirrhosis of liver without ascites; F10.21 Alcohol dependence, in remission; W18.30XA Fall on same level, unspecified, initial encounter; R26.81 Unsteadiness on feet; R11.0 Nausea; K21.9 Gastro-esophageal reflux disease without esophagitis; F32.9 Major depressive disorder, single episode, unspecified; F41.9 Anxiety disorder, unspecified; Y92.121 Bathroom in nursing home as the place of occurrence of the external cause; Z79.899 Other long term (current) drug therapy; Z83.3 Family history of diabetes mellitus; Z82.49 Family history of ischemic heart disease and other diseases of the circulatory system
CPT/HCPCS: 36415; 70450; 71045; 72125; 72192; 76000; 80048; 80053; 81003; 82140; 83735; 84484; 85025; 85060; 85610; 87641; 93005; 96374; 99283; A9270-GY; G8978-GP-CL; G8979-GP-CJ; G8987-GO-CL; G8988-GO-CJ; J0690; J1644; J2250; J2270; J2405; J2704; J3010

== ENCOUNTER → 2018-07-08 12:38 | Emergency (ER) | payer MEDICARE ==
[~2018-07-08 12:38] MED LIST: Cephalexin CAP* 500 MG PO ONE
--- OUTSIDE RECORDS SUMMARY | 2018-07-08 13:40 | XMS REPORT | Continuity of Care Document ---
:1950 External Reference #:[id number] Author Name Merritt Rios Care Team Providers Name Role Phone Marcella Purcell MD Primary Care Physician Unavailable Payers Type Date Identification Numbers Payment Provider Subscriber Policy Number: [id number] Medicare Italia Perez PayID: [id number] [facility] [address] [place] [address] Advance Directives Description No Information Available Problems Date Description Provider Status Onset: 05/22/2018 Syncope and collapse Nikkie Howard M.D. Active Onset: 05/22/2018 Chest pain Nikkie Howard M.D. Active Onset: 05/22/2018 Other pancytopenia Nikkie Howard M.D. Active Onset: 05/22/2018 Cirrhosis - non-alcoholic Nikkie Howard M.D. Active Onset: 05/23/2018 Urinary tract infectious disease Nikkie Howard M.D. Active Onset: 05/23/2018 Orthostatic hypotension Nikkie Howard M.D. Active Onset: 05/23/2018 Fall on same level Nikkie Howard M.D. Active Onset: 05/30/2018 Static encephalopathy Nikkie Howard M.D. Active Onset: 05/30/2018 Abnormal gait Nikkie Howard M.D. Active Onset: 06/02/2018 Nausea Sheron Simon NP Active Onset: 07/02/2018 Closed fracture of base of neck of Major Patterson M.D. Active femur Family History Description No Information Available Social History Type Date Description Comments Sex Unknown Lives With [facility] Occupation Retired Tobacco Use Start: Unknown End: Unknown Patient is a former smoker Smoking Status Reviewed: 07/02/18 Patient is a former smoker Allergies, Adverse Reactions, Alerts Description No Known Drug Allergies Medications Medication Date Status Form Strength Qnty SIG Indications Ordering Provider Oxycodone HCL 10/30/ Active Tablets 5mg 50tabs 1-2 tabs 2017 every 4-6 Leonardo, hours as M.D. needed for pain mdd 8 Metaxalone 10/30/ Active Tablets 400mg 30tabs 1 tab by 2017 mouth Leonardo, every 8 M.D. hours as needed for pain Carafate 00/00/ Active Tablets 1gm 1/2 tab Unknown 0000 by mouth on empty stomach one hour before meals daily. Ferrous Sulfate 00/ Active Tablets 325(65Fe) 1 by Unknown 0000 mg mouth every day Protonix / Active Tablets DR 40mg 1 by Unknown 0000 mouth every day Gabapentin / Active Capsules 100mg 1 capsule Unknown 0000 three times daily. Trazodone HCL 00/ Active Tablets 100mg take 1 Unknown 0000 tablet by mouth every night bedtime for insomnia Bupropion HCL ER / Active Tablets ER 300mg 1 by Unknown (XL) 0000 24HR mouth every day Prozac 00/ Active Capsules 60mg 1 by Unknown 0000 mouth every day Magnesium 00/00/ Active Tablets 400mg 1 by Unknown 0000 mouth every day Oxybutynin 00/ Active Tablets 5mg 1 tab by Unknown Chloride 0000 mouth daily Spironolactone 00/ Active Tablets 25mg 1 by Unknown 0000 mouth every day Immunizations Description No Information Available Vital Signs Date Vital Result Comment 07/02/2018 10:42am Height 63 inches 5'3" Weight 100.00 lb per pt Heart Rate 78 /min BP Systolic Sitting 112 mmHg Lue reg cuff BP Diastolic Sitting 69 mmHg Lue reg cuff Pain Level 0 BMI (Body Mass Index) 17.7 kg/m2 Results Description No Information Available Procedures Date Code Description Status 05/31/2018 49254 Percutaneous TX Of Femoral FX Completed 05/21/2018 25634 ECHO Transthorasic Realtime 2D W Doppler & Color Flow Hosp Completed 05/21/2018 51198 Treadmill Interp/Report Only Completed 05/21/2018 27808 Stress Test Supervsn W/Out I/R Completed 05/25/2014 33121 Removal Devitalization Tissue Wound Less Than Equal 20 Completed Square CM 05/18/2014 92566 Removal Devitalization Tissue Wound Less Than Equal 20 Completed Square CM 05/11/2014 06849 Removal Devitalization Tissue Wound Less Than Equal 20 Completed Square CM 05/04/2014 52779 Removal Devitalization Tissue Wound Less Than Equal 20 Completed Square CM 04/27/2014 85473 Debridement Skin,& sq Tissue Completed Encounters Type Date Location Provider Dx Diagnosis Office Visit 06/03/2018 [facility] S72.045A Nondisp fx of 9:11a isaías Ely NP base of neck of Hospitalists left femur, init for clos fx K74.60 Unspecified cirrhosis of liver R11.0 Nausea G93.40 Encephalopathy, unspecified D61.818 Other pancytopenia Office Visit 06/02/2018 [facility] K74.60 Unspecified 9:10a isaías Ely, [employer]OSS cirrhosis of Hospitalists liver G93.40 Encephalopathy, unspecified R11.0 Nausea D61.818 Other pancytopenia Office Visit 06/01/2018 [facility] Nikkie Howard, K74.60 Unspecified 9:10a isaías Ely M.D. cirrhosis of Hospitalists liver G93.40 Encephalopathy, unspecified D61.818 Other pancytopenia Office Visit 05/31/2018 [facility] Nikkie Howard, K74.60 Unspecified 9:10a isaías Ely M.D. cirrhosis of Hospitalists liver G93.40 Encephalopathy, unspecified D61.818 Other pancytopenia Office Visit 05/30/2018 [facility] Nikkie Howard, K74.60 Unspecified 9:09a isaías Ely M.D. cirrhosis of Hospitalists liver G93.40 Encephalopathy, unspecified R26.89 Other abnormalities of gait and mobility Office Visit 05/30/2018 7:42a [facility] S72.045A Nondisp fx of [facility] base of neck [facility] of left femur, init for clos fx W18.11xA Fall from or off toilet w/o strike against object, init Office Visit 05/23/2018 10:54a [facility] Nikkie Howard, R55 Syncope and isaías Ely M.D. collapse Hospitalists N39.0 Urinary tract infection, site not specified W18.30xA Fall on same level, unspecified, initial encounter Office Visit 05/22/2018 10:53a [facility] Nikkie Howard, R55 S[facility] Assoc,pc M.D. collapse [facility]ists R07.9 Chest pain, unspecified D61.818 Other pancytopenia K74.60 Unspecified cirrhosis of liver W18.30xA Fall on same level, unspecified, initial encounter Office Visit 05/21/2018 10:53a [facility] Kari Durant, R55 Syncope and Assoc,pc DO collapse Hospitalists D61.818 Other pancytopenia N39.0 Urinary tract infection, site not specified W18.30xA Fall on same level, unspecified, initial encounter Office Visit 06/17/2014 10:58a [facility] Donald Batista, 707.19 Ulcer Of Other Center AT [facility] Part Of Lower Limb Office Visit 06/01/2014 2:45p [facility] Donald Batista 707.19 [facility] Office Visit 04/27/2014 9:26a [facility] Donald Batista 707.19 [facility] Plan of Treatment Future Appointment(s):08/13/2018 11:15 am - Major Patterson M.D. at [facility]07/02/2018 - Major Patterson M.D.S72.045D Nondisplaced fracture of base of neck of left femur, subsequFollow up:6 to 8 weeks
[2018-07-08 14:18] LABS: EGFR Non-African American 56.6 (>60)
[2018-07-08 14:19] LABS: ABS Basophils 0 10^3/ul (0-0.2); ABS Eosinophils 0 10^3/ul (0-0.6); ABS Lymphocytes 0.4 10^3/ul (1.0-4.8); ABS Monocytes 0.4 10^3/ul (0-0.8); ABS Neutrophils 5.7 10^3/ul (1.5-7.7); ABS Nucleated RBC 0 10^3/ul; Eosinophil % 0.1 %; Hematocrit 31 % (35-47); Hemoglobin 10.4 g/dl (12.0-16.0); Lymphocyte % 6.3 %; Mean Corpuscular HGB Conc 34 g/dl (31-36); Mean Corpuscular Hemoglobin 28 pg (27-31); Mean Corpuscular Volume 83 fL (80-97); Mean Platelet Volume 7.3 fL (7.4-10.4); Nucleated Red Blood Cells % 0.1; Platelet Count 67 10^3/ul (150-450); Red Blood Count 3.72 10^6/ul (4.00-5.40); Red Cell Distribution Width 17 % (10.5-15); White Blood Count 6.5 10^3/ul (3.5-10.8)
[2018-07-08 15:42] LABS: Urine Appearance Clear; Urine Blood Negative (Negative); Urine Color Amber; Urine Ketones Negative (Negative); Urine Protein Negative (Negative); Urine Red Blood Cell Trace(0-2/hpf) (Absent); Urine Specific Gravity 1.023 (1.010-1.030); Urine Urobilinogen Negative (Negative); Urine White Blood Cell Trace(0-5/hpf) (Absent)
[2018-07-08 16:42] VITALS: BP 130/66
--- NOTE | 2018-07-08 16:53 | ED ---
Complex/Multi-Sys Presentation - HPI Summary HPI Summary: Patient is a 68 y.o female presenting for evaluation after a fall and questionable single episode that occurred 3 days ago. Patient has been seen in the ER numerous times for similar complaints over the last few months. She resides at [facility]. Patient states that she had a past episode was sitting on the toilet 3 days ago injuring the left side of her head, left hip and left knee. Patient's main complaint today is pain to her left hip and knee and headache is fall. She otherwise denies chest pain, shortness of breath , abdominal pain, fever, vomiting, diarrhea. She does note decrease in urination. Patient was sent to the ER today IV she was concerns of possible head injury given ongoing pain. Symptoms are moderate in severity. Movement makes symptoms worse. Rest makes symptoms better. - History Of Current Complaint Chief Complaint: EDDizziness Time Seen by Provider: 07/08/18 12:47 Hx Obtained From: Patient - Pt. sitting up in bed in NAD> Answers questions appropriately - Allergies/Home Medications Allergies/Adverse Reactions: Allergies Allergy/AdvReac Type Severity Reaction Status Date / Time No Known Allergies Allergy Verified 05/30/18 05:48 Home Medications: Home Medications Acetaminophen TAB* [Tylenol TAB*] 650 mg PO Q6H PRN 07/08/18 [History Confirmed 07/08/18] Bisacodyl SUPP* [Dulcolax Supp*] 10 mg TX DAILY PRN 07/08/18 [History Confirmed 07/08/18] Docusate CAP* [Colace Cap*] 100 mg PO BID PRN 07/08/18 [History Confirmed ] Magnesium Hydroxide LIQ* [Milk of Magnesia LIQ*] 30 ml PO DAILY PRN 07/08/18 [ History Confirmed 07/08/18] Ondansetron ODT TAB* [Zofran 4 MG Odt TAB*] 4 mg PO Q8H PRN 07/08/18 [History Confirmed 07/08/18] Polyethylene Glycol 3350* [Miralax*] 17 gm PO DAILY PRN 07/08/18 [History Confirmed 07/08/18] Sennosides [Natural Laxative] 8.6 mg PO TID PRN 07/08/18 [History Confirmed 11/20] Sodium Phosphate ADULT ENEMA* [Fleet Enema*] 1 enema TX DAILY PRN 07/08/18 [ History Confirmed 07/08/18] Sucralfate TAB* [Carafate*] 1 gm PO 0700,1100,1600,2100 07/08/18 [History Confirmed 07/08/18] PMH/Surg Hx/FS Hx/Imm Hx Previously Healthy: Yes Endocrine/Hematology History: Denies: Hx Anticoagulant Therapy, Hx Blood Disorders, Hx Diabetes, Hx Unexplained Bleeding Cardiovascular History: Reports: Hx Angina Denies: Hx Aneurysm, Hx Hypertension, Hx Myocardial Infarction Respiratory History: Denies: Hx Asthma, Hx Chronic Obstructive Pulmonary Disease (COPD) GI History: Reports: Hx Cirrhosis, Hx Hiatal Hernia Musculoskeletal History: 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 Sensory History: Reports: Hx Contacts or Glasses - reading Denies: Hx Hearing Aid Opthamlomology History: Reports: Hx Contacts or Glasses - reading Psychiatric History: Reports: Hx Anxiety, Hx Depression - Surgical History Surgery Procedure, Year, and Place: CHOLECYSTECTOMY, HERNIA REPAIR, GASTRIC BYPASS Hx Anesthesia Reactions: No Infectious Disease History: No Infectious Disease History: Denies: Traveled Outside the [place] in Last 30 Days - Family History Known Family History: Positive: Non-Contributory - Social History Occupation: Retired Lives: [facility] Alcohol Use: None Hx Substance Use: No Substance Use Type: Reports: None Hx Tobacco Use: Yes - not currently but admits to 2nd hand smoke Smoking Status (MU): Former Smoker Review of Systems Constitutional: Negative Negative: Fever, Chills Eyes: Negative ENT: Negative Cardiovascular: Negative Respiratory: Negative Gastrointestinal: Negative Positive: other - decreased urination Positive: Other - left hip and knee pain Positive: Headache, Syncope All Other Systems Reviewed And Are Negative: Yes Physical Exam Triage Information Reviewed: Yes Vital Signs On Initial Exam: Initial Vitals Temp Pulse Resp BP Pulse Ox 99.3 F 76 20 131/64 100 07/08/18 12:45 07/08/18 12:45 07/08/18 12:45 07/08/18 12:45 07/08/18 12:45 Vital Signs Reviewed: Yes Appearance: Positive: Well-Appearing - Pt. sitting up in bed in NAD> Answers questions appropriately Skin: Positive: Warm, Dry Head/Face: Positive: Normal Head/Face Inspection Eyes: Positive: Normal, EOMI Neck: Positive: Supple, Nontender Respiratory/Lung Sounds: Positive: Clear to Auscultation, Breath Sounds Present Cardiovascular: Positive: Normal, RRR Abdomen Description: Positive: Nontender, Soft Musculoskeletal: Positive: Other - Good left pedal pulse. Pain pain with movement of left knee and hip. NO wounds. Neurological: Positive: Normal, CN Intact II-III. Negative: Alert, Oriented to Person Place, Time - Oriented to person and place, not year Psychiatric: Positive: Affect/Mood Appropriate - [place] Coma Scale Best Eye Response: 4 - Spontaneous Best Motor Response: 6 - Obeys Commands Best Verbal Response: 5 - Oriented Coma Scale Total: 15 Diagnostics - Vital Signs Vital Signs Temp Pulse Resp BP Pulse Ox 07/08/18 16:40 97.8 F 66 16 130/66 97 07/08/18 15:53 64 129/67 99 07/08/18 15:23 133/67 07/08/18 14:53 66 128/67 100 07/08/18 14:30 64 122/65 100 07/08/18 14:29 64 100 07/08/18 13:37 72 94/52 07/08/18 13:33 83 94/52 97 07/08/18 13:31 78 118/68 99 07/08/18 13:30 75 126/67 100 07/08/18 13:23 74 98/63 100 07/08/18 13:00 74 99 07/08/18 12:54 81 115/68 100 07/08/18 12:53 77 100 07/08/18 12:45 99.3 F 76 20 131/64 100 - Laboratory Lab Results: Lab Results 07/08/18 07/08/18 07/08/18 Range/Units 13:44 13:44 15:15 WBC 6.5 (3.5-10.8) 10^3/ul RBC 3.72 L (4.00-5.40) 10^6/ul Hgb 10.4 L (12.0-16.0) g/dl Hct 31 L (35-47) % MCV 83 (80-97) fL MCH 28 (27-31) pg MCHC 34 (31-36) g/dl RDW 17 H (10.5-15) % Plt Count 67 L (150-450) 10^3/ul MPV 7.3 L (7.4-10.4) fL Neut % (Auto) 87.8 % Lymph % (Auto) 6.3 % [place] % (Auto) 5.5 % Eos % (Auto) 0.1 % Baso % (Auto) 0.3 % Absolute Neuts (auto) 5.7 (1.5-7.7) 10^3/ul Absolute Lymphs (auto) 0.4 L (1.0-4.8) 10^3/ul Absolute Monos (auto) 0.4 (0-0.8) 10^3/ul Absolute Eos (auto) 0 (0-0.6) 10^3/ul Absolute Basos (auto) 0 (0-0.2) 10^3/ul Absolute Nucleated RBC 0 10^3/ul Nucleated RBC % 0.1 Sodium 133 L (135-145) mmol/L Potassium 4.2 (3.5-5.0) mmol/L Chloride 103 (101-111) mmol/L Carbon Dioxide 24 (22-32) mmol/L Anion Gap 6 (2-11) mmol/L BUN 25 H (6-24) mg/dL Creatinine 0.98 H (0.51-0.95) mg/dL Est GFR ( Amer) 68.5 (>60) Est GFR (Non-Af Amer) 56.6 (>60) BUN/Creatinine Ratio 25.5 H (8-20) Glucose 145 H (70-100) mg/dL Calcium 8.8 (8.6-10.3) mg/dL Total Bilirubin 0.80 (0.2-1.0) mg/dL AST 36 (13-39) U/L ALT 24 (7-52) U/L Alkaline Phosphatase 121 H (34-104) U/L Troponin I 0.00 (<0.04) ng/mL Total Protein 6.2 L (6.4-8.9) g/dL Albumin 3.5 (3.2-5.2) g/dL Globulin 2.7 (2-4) g/dL Albumin/Globulin Ratio 1.3 (1-3) Urine Color Aimee Urine Appearance Clear Urine pH 7.0 (5-9) Ur Specific [place] 1.023 (1.010-1.030) Urine Protein Negative (Negative) Urine Ketones Negative (Negative) Urine Blood Negative (Negative) Urine Nitrate Positive A (Negative) Urine Bilirubin Negative (Negative) Urine Urobilinogen Negative (Negative) Ur Leukocyte Esterase Negative (Negative) Urine WBC (Auto) Trace(0-5/hpf) (Absent) Urine RBC (Auto) Trace(0-2/hpf) (Absent) Urine Bacteria 3+ A (Absent) Urine Glucose Negative (Negative) Result Diagrams: 07/08/18 13:44 07/08/18 13:44 Lab Statement: Any lab studies that have been ordered have been reviewed, and results considered in the medical decision making process. Complex Multi-Symp Course/Dx Course Of Treatment: Patient presenting for evaluation after a fall and questionable single episode that occurred 3 days ago. Patient has been seen in the ER numerous times for similar complaints over the last few months. She resides at [facility]. Patient's main complaint today is pain to her left hip and knee and headache is fall. She otherwise denies chest pain, shortness of breath, abdominal pain, fever, vomiting, diarrhea. She does note decrease in urination. She is afebrile stable vital signs. We'll check basic labs, EKG, head CT, chest, knee and hip x-ray. ECG done at 1322 shows a sinus rhythm of 74 bpm, right bundle-branch block, axis deviation, no ST elevation or depression. Blood work at patient's baseline. Imaging negative for acute findings, reading per radiology. Urinalysis is nitrite positive with bacteria. We'll treat with Keflex based on previous urine culture. She is able to ambulate with walker at her baseline without complaints of pain. Will discharge back to [facility]. To follow-up with PCP 1-2 days. To return to the ER symptoms change or worsen. - Diagnoses Provider Diagnoses: Fall, UTI (urinary tract infection) Discharge - Sign-Out/Discharge Documenting (check all that apply): Patient Departure - Discharge Plan Condition: Good Disposition: HOME Prescriptions: Cephalexin CAP* [Keflex CAP*] 500 mg PO BID #20 cap Patient Education Materials: Urinary Tract Infection in Women (ED) Referrals: Marcella Purcell MD [Primary Care Provider] - Additional Instructions: Schedule a follow up appointment with PCP for recheck in 2-3 days Take antibiotic as directed Increase fluids Return to ER if symptoms change or worsen - Billing Disposition and Condition Condition: GOOD Disposition: Home
--- NOTE | 2018-07-10 06:22 | PN ---
Progress Note - Progress Note Date of Service: 07/10/18 Note: patient preliminary urine culture grew E coli >100,000. patient placed on keflex. will wait for final culture for sensitivities.
== END | disposition home or self-care (01) ==
LOC: ED 12:38
DX: N39.0 Urinary tract infection, site not specified (principal); Z91.81 History of falling
CPT/HCPCS: 36415; 70450; 71045; 80053; 81003; 81015; 84484; 85025; 87077; 87086; 87186; 93005; 99282; A9270-GY